=== PATIENT | male | born 1930 | race Caucasian/White ===

== ENCOUNTER 2017-03-01 15:20 | Emergency (ER) | payer MEDICARE ==
[2017-03-01 15:25] VITALS: PULSE 67
[2017-03-01 16:12] LABS: BASO % 0.9 % (0.0-2.0); EOS # 0.2 K/uL (0.0-0.7); EOS % 3.6 % (0.0-4.0); HEMOGLOBIN 14.1 g/dL (12.0-18.0); LYMPH # 1.2 K/uL (1.0-4.3); LYMPH % 22.6 % (20.0-40.0); MEAN CELL VOLUME 93.9 fL (80.0-94.0); MEAN CORPUSCULAR HEMOGLOBIN 30.9 pg (27.0-31.0); MEAN CORPUSCULAR HGB CONC 32.9 g/dL (33.0-37.0); MEAN PLATELET VOLUME 8.2 fL (7.2-11.7); MONO # 0.5 K/uL (0.0-0.8); MONO % 9.6 % (0.0-10.0); NEUT # 3.3 K/uL (1.8-7.0); NEUT % 63.3 % (50.0-75.0); NRBC % 0.1 % (0.0-2.0); RBC 4.55 Mil/uL (4.40-5.90); RED CELL DISTRIBUTION WIDTH 14.7 % (11.5-14.5); WHITE BLOOD COUNT 5.1 K/uL (4.8-10.8)
[2017-03-01 16:21] LABS: INR 1.1
[2017-03-01 16:29] LABS: ALBUMIN 3.5 g/dL (3.5-5.0)
[2017-03-01 16:32] LABS: ALB/GLOB RATIO 1.3 (1.0-2.1); ALT/SGPT 24 U/L (21-72); AST/SGOT 17 U/L (17-59); BLOOD UREA NITROGEN 17 mg/dL (9-20); CALCIUM 8.9 mg/dl (8.6-10.4); GFR AFRICAN-AMERICAN > 60; GFR NON-AFRICAN AMERICAN > 60
[2017-03-01 16:41] LABS: B-TYPE NATRIURETIC PEPTIDE 1650 pg/mL (0-900)
--- NOTE | 2017-03-01 17:08 | C.PDOC ---
History Of Present Illness 86 y/o male, with PMHx of Atrial Fibrillation and HTN, presents to the ED for evaluation of abdominal bloating. Patient was seen by his PMD yesterday for a routine visit, when his PMD noted patient had some bloating and advised to report to the ED. Patient reports he experiences dyspnea on exertion with walking up the stairs, but notes this is nothing new. Patient also reports chronic pain and associated to bilateral knees. Patient denies fever, chills, chest pain, shortness of breath at rest, orthopnea, nausea, vomiting, abdominal pain. Time Seen by Provider: 03/01/17 15:32 Chief Complaint (Nursing): Shortness Of Breath History Per: Patient History/Exam Limitations: no limitations Onset/Duration Of Symptoms: Hrs Current Symptoms Are (Timing): Still Present Quality: denies: "Pain" Current Respiratory Medications: See Home Med List Associated Symptoms: denies: Fever, Chills, Chest Pain Additional History Per: Patient Past Medical History Reviewed: Historical Data, Nursing Documentation, Vital Signs Vital Signs: Last Vital Signs Temp 98.6 F 03/01/17 18:08 Pulse 67 03/01/17 18:08 Resp 15 03/01/17 18:08 BP 152/89 H 03/01/17 18:08 Pulse Ox 98 03/01/17 18:28 - Medical History PMH: HTN Surgical History: No Surg Hx Family History: States: Unknown Family Hx - Social History Hx Tobacco Use: No Hx Alcohol Use: No Hx Substance Use: No - Immunization History Hx Tetanus Toxoid Vaccination: No Hx Influenza Vaccination: Yes Hx Pneumococcal Vaccination: Yes Review Of Systems Constitutional: Negative for: Fever, Chills Cardiovascular: Negative for: Chest Pain Respiratory: Positive for: SOB with Excertion. Negative for: Shortness of Breath Gastrointestinal: Positive for: Other (+bloating ). Negative for: Nausea, Vomiting, Abdominal Pain Musculoskeletal: Positive for: Other (+b/l knee pain with associated with swelling ) Physical Exam - Physical Exam Appears: Non-toxic, No Acute Distress, Other (+afebrile ) Skin: Normal Color, Warm, Dry Head: Atraumatic Eye(s): bilateral: Normal Inspection Oral Mucosa: Moist Neck: Supple Chest: Symmetrical, No Deformity, No Tenderness Cardiovascular: Rhythm Regular, No Murmur, Other (+irregular rate ) Respiratory: Rales (+crackles bilaterally ) Gastrointestinal/Abdominal: Soft, No Tenderness, No Guarding, No Rebound, No Other (bloating ) Extremity: Normal ROM, Capillary Refill (less than 2 seconds ) Neurological/Psych: Normal Speech, Normal Cognition Gait: Steady ED Course And Treatment - Laboratory Results Result Diagrams: 03/01/17 16:09 03/01/17 16:09 ECG: Interpreted By Me, Viewed By Me ECG Rhythm: Atrial Fibrillation Rate From EC O2 Sat by Pulse Oximetry: 98 (on RA) Pulse Ox Interpretation: Normal - Other Rad CXR X-Ray: Interpreted by Me, Viewed By Me, Read By Radiologist Interpretation: Accession No. : [id number]. Patient Name / ID : HILARY SCHAFFER / [id number]. Exam Date : 03/01/2017 16:00:34 ( Approved ). Study Comment : Sex / Age : M / [id number]. Creator : Laurence Nassar. Dictator : Laurence Nassar. Tank Operator : Boat Ride Operator : Laurence Nassar. Approver2 : Report Date : 03/01/2017 17:20:43. My Comment : . PROCEDURE: CHEST RADIOGRAPH, 1 VIEW. HISTORY: chest pain. COMPARISON: None available. FINDINGS: LUNGS: Mild pulmonary vascular congestion. PLEURA: Suspicious for small right pleural effusion. CARDIOVASCULAR: Cardiomegaly is noted. OSSEOUS STRUCTURES: No significant abnormalities. VISUALIZED UPPER ABDOMEN: Normal. OTHER FINDINGS: None. IMPRESSION: Findings suspicious for CHF. Medical Decision Making Medical Decision Making: Impression: 86 y/o male with bloating Plan: * EKG * CXR * labs * Lasix IV * reassess and disposition Progress: labs, EKG, CXR ordered and reviewed. Patient received Lasix IV. CXR showed evidence of pulmonary congestion. labs results show troponin levels within normal limits, slightly elevated BNP. Disposition Counseled Patient/Family Regarding: Studies Performed, Diagnosis, Need For Followup, Rx Given - Disposition Referrals: Walker Lu MD [Staff Provider] - Disposition: HOME/ ROUTINE Disposition Time: 17:54 Condition: GUARDED Additional Instructions: Please follow up with your doctor or the recommended mattress renovator. Return to the Emergency Department with any further concerns. Instructions: Pulmonary Edema (DC) Forms: Gen Discharge Inst Moldovan - POA Present On Arrival: None - Clinical Impression Clinical Impression: Chronic congestive heart failure - Scribe Statement The provider has reviewed the documentation as recorded by the Scribe (Trish Day) Provider Attestation: All medical record entries made by the Scribe were at my direction and personally dictated by me. I have reviewed the chart and agree that the record accurately reflects my personal performance of the history, physical exam, medical decision making, and the department course for this patient. I have also personally directed, reviewed, and agree with the discharge instructions and disposition.
--- NOTE | 2017-03-01 17:22 | RAD ---
PROCEDURE: CHEST RADIOGRAPH, 1 VIEW HISTORY: chest pain COMPARISON: None available. FINDINGS: LUNGS: Mild pulmonary vascular congestion. PLEURA: Suspicious for small right pleural effusion CARDIOVASCULAR: Cardiomegaly is noted. OSSEOUS STRUCTURES: No significant abnormalities. VISUALIZED UPPER ABDOMEN: Normal. OTHER FINDINGS: None. IMPRESSION: Findings suspicious for CHF.
[2017-03-01 18:14] VITALS: BP 152/89; RESP 15; TEMP 98.6
[2017-03-01 18:20] VITALS: O2SAT 98
--- NOTE | 2017-03-07 13:59 | CARD ---
APPROVED REPORT EKG Measurement Heart [id number] <Conclusion> Atrial fibrillation Abnormal ECG
== END 2017-03-01 18:14 | disposition home or self-care (01) ==
LOC: C.ER 15:20
DX: I50.9 Heart failure, unspecified (principal)
CPT/HCPCS: 71010; 80053; 83880; 84484; 85025; 85610; 85730; 96374; 99284; J1940

== ENCOUNTER 2017-05-11 16:44 | Observation (INO) | payer MEDICARE ==
--- NOTE | 2017-05-11 17:38 | C.PDOC ---
History Of Present Illness 86-year-old male, presents to the emergency department with complaints of worsening shortness of breath and dyspnea on exertion that has been worsening for the past two months. Patients secondary complaint is pain to bilateral knees , worsening for the past two months. Denies trauma, chest pain, fevers or cough. Time Seen by Provider: 05/11/17 17:06 Chief Complaint (Nursing): Shortness Of Breath History Per: Patient History/Exam Limitations: no limitations Onset/Duration Of Symptoms: Days Current Symptoms Are (Timing): Still Present Past Medical History Reviewed: Historical Data, Nursing Documentation, Vital Signs Vital Signs: Last Vital Signs Temp 97.9 F 05/11/17 16:59 Pulse 82 05/11/17 16:59 Resp 30 H 05/11/17 17:30 BP 136/74 05/11/17 16:59 Pulse Ox 97 05/11/17 18:43 - Medical History PMH: HTN Family History: States: No Known Family Hx - Social History Hx Tobacco Use: No Hx Alcohol Use: No Hx Substance Use: No - Immunization History Hx Tetanus Toxoid Vaccination: No Hx Influenza Vaccination: Yes Hx Pneumococcal Vaccination: Yes Review Of Systems Except As Marked, All Systems Reviewed And Found Negative. Constitutional: Negative for: Fever Cardiovascular: Negative for: Chest Pain, Palpitations Respiratory: Positive for: Shortness of Breath, SOB with Excertion Musculoskeletal: Positive for: Other (B/L knee pain) Neurological: Negative for: Weakness, Numbness, Headache, Dizziness Physical Exam - Physical Exam Appears: Non-toxic, No Acute Distress Skin: Warm, Dry, No Rash Head: Atraumatic, Normacephalic Eye(s): bilateral: Normal Inspection Nose: Normal Oral Mucosa: Moist Lips: Normal Appearing Neck: Normal ROM Chest: Symmetrical Cardiovascular: Rhythm Regular, No Murmur Respiratory: No Accessory Muscle Use, Other (Tachypneic) Extremity: Normal ROM Neurological/Psych: Oriented x3, Normal Speech ED Course And Treatment - Laboratory Results Result Diagrams: 05/11/17 17:49 05/11/17 17:49 ECG: Interpreted By Me ECG Rhythm: Atrial Fibrillation ECG Interpretation: Normal Rate From EC O2 Sat by Pulse Oximetry: 97 Pulse Ox Interpretation: Normal - Radiology CXR: Interpreted by Me CXR Interpretation: Yes: No Acute Disease Progress - Re-Evaluation Re-evaluation Note: 05/11/17 18:46 D/W DR Felton EILAS 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 I have reviewed the chart and agree that the record accurately reflects my personal performance of the history, physical exam, medical decision making, and the department course for this patient. I have also personally directed, reviewed, and agree with the discharge instructions and disposition. Decision To Admit - Pt Status Changed To: Hospital Disposition Of: Observation - . Bed Request Type: Telemetry Admitting Physician: Terrence Wright Patient Diagnosis: CHF exacerbation, Chronic knee pain
[2017-05-11 17:57] LABS: BASO % 0.4 % (0.0-2.0); EOS % 0.4 % (0.0-4.0); HEMATOCRIT 45.5 % (35.0-51.0); LYMPH # 1.1 K/uL (1.0-4.3); LYMPH % 10.8 % (20.0-40.0); MEAN CELL VOLUME 92.1 fL (80.0-94.0); MEAN CORPUSCULAR HEMOGLOBIN 30.7 pg (27.0-31.0); MEAN CORPUSCULAR HGB CONC 33.4 g/dL (33.0-37.0); MEAN PLATELET VOLUME 8.4 fL (7.2-11.7); MONO # 1.1 K/uL (0.0-0.8); MONO % 10.4 % (0.0-10.0); RED CELL DISTRIBUTION WIDTH 14.1 % (11.5-14.5); WHITE BLOOD COUNT 10.7 K/uL (4.8-10.8)
[2017-05-11 18:01] LABS: CHLORIDE 100 mmol/L (98-107); POTASSIUM 3.3 mmol/L (3.6-5.2); SODIUM 142 mmol/L (132-148)
[2017-05-11 18:03] LABS: ALB/GLOB RATIO 1.2 (1.0-2.1); AST/SGOT 32 U/L (17-59); BILIRUBIN,TOTAL 1.5 mg/dL (0.2-1.3); CARBON DIOXIDE 28 mmol/L (22-30); GFR AFRICAN-AMERICAN > 60; INR 1.3; TOTAL PROTEIN 6.9 g/dL (6.3-8.3)
[2017-05-11 18:04] LABS: ALKALINE PHOSPHATASE 64 U/L (38-126); ALT/SGPT 43 U/L (21-72); BLOOD UREA NITROGEN 14 mg/dL (9-20); CALCIUM 9.2 mg/dl (8.6-10.4); GLUCOSE,RANDOM 100 mg/dL (75-110)
[2017-05-11 18:07] LABS: VENOUS BLOOD GAS BASE EXCESS 1.5 mmol/L (0.0-2.0); VENOUS BLOOD GAS PCO2 54 mmHg (40-60); VENOUS BLOOD PH 7.33 (7.32-7.43)
--- NOTE | 2017-05-12 02:28 | CP.PCM.HP ---
History of Present Illness - History of Present Illness History of Present Illness: 86 yo M with PMHx of A-Fib, HTN, chronic right knee pain, presented to the ED for worsening shortness of breath that began 3 months ago. The patient is a poor historian and AAOx2 (not oriented to time) thus some history was collected from chart review. During encounter patient was more focused on his chronic right knee pain. He denied breathing difficulty and was unable to answer questions related to his dyspnea. He was sitting up in bed without breathing assistance and saturating at 98%. He admitted to non-productive cough. He denied fever, chills, chest pain, palpitations, diarrhea, vomiting. PMD: Pt unable to recall PMHx: A-Fib, HTN, chronic right knee pain PSHx: denies Allergies: NKA Home Medications: aspirin 81mg po daily, furosemide 20mg po daily, lisinopril 40mg po daily, metoprolol succinate 50mg po daily FamHx: denies SocialHx: denies Present on Admission - Present on Admission Any Indicators Present on Admission: No History of DVT/PE: No History of Uncontrolled Diabetes: No Urinary Catheter: No Decubitus Ulcer Present: No Review of Systems - Review of Systems Systems not reviewed;Unavailable: Other Review of Systems: Patient with poor recall; very poor historian; - Constitutional Constitutional: absent: Chills, Fever - Cardiovascular Cardiovascular: absent: Chest Pain - Respiratory Respiratory: Cough, Dyspnea - Gastrointestinal Gastrointestinal: absent: Abdominal Pain - Genitourinary Genitourinary: absent: Dysuria - Musculoskeletal Musculoskeletal: Arthralgias - Neurological Neurological: absent: Dizziness - Hematologic/Lymphatic Hematologic: absent: Easy Bleeding Past Patient History - Infectious Disease Hx of Infectious Diseases: None - Past Social History Smoking Status: Never Smoked - CARDIAC Hx Hypertension: Yes - MUSCULOSKELETAL/RHEUMATOLOGICAL Hx Falls: No - PSYCHIATRIC Hx Substance Use: No - ANESTHESIA Hx Anesthesia: No Hx Anesthesia Reactions: No Hx Malignant Hyperthermia: No Has any member of the family had a problem w/ anesthesia?: No Meds Allergies/Adverse Reactions: Allergies Allergy/AdvReac Type Severity Reaction Status Date / Time No Known Allergies Allergy Verified 05/11/17 17:01 Physical Exam - Constitutional Appears: Well, Non-toxic, No Acute Distress - Head Exam Head Exam: ATRAUMATIC, NORMAL INSPECTION - Eye Exam Eye Exam: EOMI Pupil Exam: PERRL - ENT Exam ENT Exam: Mucous Membranes Moist - Neck Exam Neck exam: Positive for: Normal Inspection - Respiratory Exam Respiratory Exam: Clear to Auscultation Bilateral, NORMAL BREATHING PATTERN. absent: Rales, Rhonchi, Wheezes - Cardiovascular Exam Cardiovascular Exam: Irregular Rhythm. absent: Bradycardia, Tachycardia, Systolic Murmur - GI/Abdominal Exam GI & Abdominal Exam: Normal Bowel Sounds, Soft. absent: Distended, Tenderness - Rectal Exam Rectal Exam: Deferred - Extremities Exam Extremities exam: Positive for: normal inspection. Negative for: joint swelling , pedal edema - Neurological Exam Additional comments: Alert; AAOx2 (not oriented to time/date) - Psychiatric Exam Psychiatric exam: Normal Affect, Normal Mood - Skin Skin Exam: Dry, Intact, Normal Color, Warm Results - Vital Signs Recent Vital Signs: Last Vital Signs Temp 98 F 05/12/17 00:28 Pulse 75 05/12/17 02:11 Resp 24 05/12/17 00:28 BP 134/76 05/12/17 00:28 Pulse Ox 96 05/12/17 01:47 - Labs Result Diagrams: 05/11/17 17:49 05/11/17 17:49 Labs: Laboratory Results - last 24 hr 05/11/17 05/11/17 05/11/17 17:49 17:49 17:49 WBC 10.7 D RBC 4.94 Hgb 15.2 Hct 45.5 MCV 92.1 MCH 30.7 MCHC 33.4 RDW 14.1 Plt Count 185 MPV 8.4 Neut % (Auto) 78.0 H Lymph % (Auto) 10.8 L Harvey % (Auto) 10.4 H Eos % (Auto) 0.4 Baso % (Auto) 0.4 Neut # 8.3 H Lymph # 1.1 Harvey # 1.1 H Eos # 0.0 Baso # 0.0 PT 15.0 H INR 1.3 APTT 35 H D-Dimer, Quantitative 663 H pO2 VBG pH VBG pCO2 VBG HCO3 VBG Total CO2 VBG O2 Sat (Calc) VBG Base Excess VBG Potassium Glucose Lactate Sodium 142 Potassium 3.3 L Chloride 100 Carbon Dioxide 28 Anion Gap 18 BUN 14 Creatinine 0.9 Est GFR ( Amer) > 60 Est GFR (Non-Af Amer) > 60 Random Glucose 100 Calcium 9.2 Total Bilirubin 1.5 H AST 32 ALT 43 Alkaline Phosphatase 64 Troponin I < 0.0120 NT-Pro-B Natriuret Pep 2420 H Total Protein 6.9 Albumin 3.7 Globulin 3.2 Albumin/Globulin Ratio 1.2 Venous Blood Potassium 05/11/17 18:00 WBC RBC Hgb Hct MCV MCH MCHC RDW Plt Count MPV Neut % (Auto) Lymph % (Auto) Harvey % (Auto) Eos % (Auto) Baso % (Auto) Neut # Lymph # Harvey # Eos # Baso # PT INR APTT D-Dimer, Quantitative pO2 14 L VBG pH 7.33 VBG pCO2 54 VBG HCO3 23.8 VBG Total CO2 30.2 H VBG O2 Sat (Calc) 26.8 L VBG Base Excess 1.5 VBG Potassium 3.1 L Glucose 128 H Lactate 1.9 Sodium 140.0 Potassium Chloride 108.0 H Carbon Dioxide Anion Gap BUN Creatinine Est GFR ( Amer) Est GFR (Non-Af Amer) Random Glucose Calcium Total Bilirubin AST ALT Alkaline Phosphatase Troponin I NT-Pro-B Natriuret Pep Total Protein Albumin Globulin Albumin/Globulin Ratio Venous Blood Potassium 3.1 L Assessment & Plan (1) CHF exacerbation Assessment and Plan: subjective SOB as patient is poor historian; maintaining spO2 on room air; need to verify hx w/ family/PMD Echo ordered, F/U CTA of chest ordered, F/U furosemide 20mg po daily continue home med aspirin 81mg po daily Status: Acute (2) Hypertension Assessment and Plan: Home meds verified per ED nurse; presumed hx of HTN continue home med lisinopril 10mg po daily continue home med metoprolol succinate 50mg po daily Status: Acute (3) Atrial fibrillation Assessment and Plan: Hx of A-Fib, not on anticoagulation, will need to check with PMD Status: Acute (4) Chronic knee pain Assessment and Plan: Patient able to ambulate without difficulty, no swelling noted Status: Acute (5) Prophylactic measure Assessment and Plan: DVT: enoxaparin 40mg sc daily GI: pantoprazole 40mg po daily Diet: heart healthy diet Status: Acute
--- NOTE | 2017-05-12 03:45 | CP.PCM.PN ---
Subjective - Date & Time of Evaluation Date of Evaluation: 05/11/17 Time of Evaluation: 21:00 - Subjective Subjective: Assessment * Subjective SOB as per the history, patient maintaining spo2 on RA, maintained RR at rest, elevated ddimer, poor history from patient probably has dementia * H/o afib not on anticoagulation will check with patient's PMD * H/o htn Plan * Echo * CTA chest PE study * Continue home meds * GI prophylaxis * DVT prophylaxis with lovenox subq * Check with PMD and family * See orders for detail. Objective - Vital Signs/Intake and Output Vital Signs (last 24 hours): Temp Pulse Resp BP Pulse Ox 98 F 75 24 134/76 96 05/12/17 00:28 05/12/17 02:11 05/12/17 00:28 05/12/17 00:28 05/12/17 01:47 Intake and Output: 05/11/17 05/12/17 18:59 06:59 Output Total 300 Balance -300 - Medications Medications: Current Medications Aspirin (Aspirin Chewable) 81 mg PO DAILY JOESPH Enoxaparin Sodium (Lovenox) 40 mg SC DAILY JOESPH Furosemide (Lasix) 20 mg PO DAILY JOESPH Lisinopril (Zestril) 10 mg PO DAILY JOESPH Metoprolol Succinate (Toprol Xl) 50 mg PO DAILY JOESPH Pantoprazole Sodium (Protonix Ec Tab) 40 mg PO DAILY JOESPH - Labs Labs: 05/11/17 17:49 05/11/17 17:49 PT 15.0 SECONDS (9.7-12.2) H 05/11/17 17:49 INR 1.3 05/11/17 17:49 APTT 35 SECONDS (21-34) H 05/11/17 17:49
[2017-05-12] MEDS ORDERED: Iodixanol 320 MG/ML 100 ML BOTTLE IV ONE (06:21)
--- NOTE | 2017-05-12 07:31 | CT ---
EXAM: CT Angiography Chest With Intravenous Contrast EXAM DATE/TIME: 05/12/2017 3:40 AM CLINICAL HISTORY: 86 years old, male; Signs and symptoms; Shortness of breath; Additional info: Positive d dimer, C/O some SOB TECHNIQUE: Axial computed tomographic angiography images of the chest with intravenous contrast using pulmonary embolism protocol. All CT scans at this facility use one or more dose reduction techniques, viz.: automated exposure control; ma/kV adjustment per patient size (including targeted exams where dose is matched to indication; i.e. head); or iterative reconstruction technique. MIP reconstructed images were created and reviewed. Coronal and sagittal reformatted images were created and reviewed. CONTRAST: 100 mL of [id number] administered intravenously. COMPARISON: No relevant prior studies available. FINDINGS: Pulmonary arteries: No evidence of pulmonary embolism. Aorta: Ascending thoracic aorta measures 4.3 cm. Descending aorta measures 3.6 cm. Lungs: Unremarkable. No mass. No consolidation. Pleural space: Unremarkable. No significant effusion. No pneumothorax. Heart: Cardiomegaly. Prominent pulmonary veins relative to the accompanying bronchi. No consolidation. No mass. No significant pericardial effusion. No evidence of RV dysfunction. Bones/joints: No acute fracture. Soft tissues: Unremarkable. Lymph nodes: No enlarged lymph nodes. Liver: Low attenuation hepatic lesions, largest 1.8 cm, the others 5 mm. Kidneys and ureters: Similar low attenuation right renal lesions 1.5 cm or less. 8mm high attenuation lesion. IMPRESSION: 1. No evidence of pulmonary embolism. 2. 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 3. Cardiomegaly and mild pulmonary venous congestion. 4. Hepatic and renal cysts. Probable complex hemorrhagic right renal cyst.
--- NOTE | 2017-05-12 08:56 | RAD ---
PROCEDURE: CHEST RADIOGRAPH, 1 VIEW HISTORY: Shortness of breath COMPARISON: None available. FINDINGS: LUNGS: Moderate venous congestion. Right hilar prominence. Patchy bibasilar airspace opacities. Mammilated and/or elevated left hemidiaphragm. Diffuse increased interstitial lung markings. PLEURA: As above. CARDIOVASCULAR: Cardiomegaly. Tortuous ectatic aorta. OSSEOUS STRUCTURES: No significant abnormalities. VISUALIZED UPPER ABDOMEN: Normal. OTHER FINDINGS: None. IMPRESSION: Moderate venous congestion. Right hilar prominence. Patchy bibasilar airspace opacities. Mammilated and/or elevated left hemidiaphragm. Diffuse increased interstitial lung markings.
[2017-05-12 09:10] VITALS: RESP 20
[2017-05-12] MEDS: Pantoprazole 40 mg EC Tab PO SCH (11:17)
[2017-05-12] MEDS: Enoxaparin 40 mg Syringe SC SCH (11:18)
[2017-05-12] MEDS: Metoprolol Succinate 50 mg XL Tab PO SCH (11:18)
--- NOTE | 2017-05-12 15:57 | CP.PCM.PN ---
<Reza Thakur - Last Filed: 05/12/17 17:39> Subjective - Date & Time of Evaluation Date of Evaluation: 05/12/17 Time of Evaluation: 08:00 - Subjective Subjective: PGY1 Medicine Note for Dr. Luna Patient was seen and examined at bedside this morning. Patient denies any SOB or chest pain at this time. He is a poor historian. Denies any complaints at this time. Objective - Vital Signs/Intake and Output Vital Signs (last 24 hours): Temp Pulse Resp BP Pulse Ox 98.9 F 62 20 118/77 94 L 05/12/17 08:00 05/12/17 12:31 05/12/17 08:00 05/12/17 11:20 05/12/17 12:31 Intake and Output: 05/12/17 05/12/17 06:59 18:59 Output Total 300 Balance -300 - Medications Medications: Current Medications Aspirin (Aspirin Chewable) 81 mg PO DAILY [facility] Last Admin: 05/12/17 11:17 Dose: 81 mg Enoxaparin Sodium (Lovenox) 40 mg SC DAILY [facility] Last Admin: 05/12/17 11:18 Dose: 40 mg Furosemide (Lasix) 20 mg PO DAILY [facility] Last Admin: 05/12/17 11:18 Dose: 20 mg Lisinopril (Zestril) 10 mg PO DAILY [facility] Last Admin: 05/12/17 11:17 Dose: 10 mg Metoprolol Succinate (Toprol Xl) 50 mg PO DAILY [facility] Last Admin: 05/12/17 11:18 Dose: 50 mg Pantoprazole Sodium (Protonix Ec Tab) 40 mg PO DAILY [facility] Last Admin: 05/12/17 11:17 Dose: 40 mg - Labs Labs: 05/11/17 17:49 05/11/17 17:49 PT 15.0 SECONDS (9.7-12.2) H 05/11/17 17:49 INR 1.3 05/11/17 17:49 APTT 35 SECONDS (21-34) H 05/11/17 17:49 - Constitutional Appears: Non-toxic, No Acute Distress - Head Exam Head Exam: ATRAUMATIC, NORMOCEPHALIC - Eye Exam Eye Exam: EOMI, Normal appearance - ENT Exam ENT Exam: Mucous Membranes Moist - Neck Exam Neck Exam: Full ROM. absent: Meningismus, Tenderness - Respiratory Exam Respiratory Exam: NORMAL BREATHING PATTERN. absent: Accessory Muscle Use, Rhonchi, Wheezes, Respiratory Distress - Cardiovascular Exam Cardiovascular Exam: Irregular Rhythm, +S1, +S2 - GI/Abdominal Exam GI & Abdominal Exam: Soft, Normal Bowel Sounds. absent: Distended, Guarding, Rigid, Tenderness - Extremities Exam Extremities Exam: absent: Calf Tenderness, Tenderness Additional comments: trace pitting edema LE b/l - Neurological Exam Neurological Exam: Alert, Awake. absent: Motor Sensory Deficit, Oriented x3 ( not oriented to time/date) - Psychiatric Exam Psychiatric exam: Normal Affect, Normal Mood - Skin Skin Exam: Dry, Intact, Warm Assessment and Plan - Assessment and Plan (Free Text) Assessment: CHF exacerbation Assessment and Plan: subjective SOB as patient is poor historian; maintaining spO2 on room air; need to verify hx w/ family/PMD Echo completed, awaiting report CTA of chest ordered - no evidence of PE seen furosemide 20mg po daily aspirin 81mg po daily (2) Hypertension Assessment and Plan: Home meds verified per ED nurse; presumed hx of HTN continue home med lisinopril 10mg po daily continue home med metoprolol succinate 50mg po daily (3) Atrial fibrillation Assessment and Plan: Hx of A-Fib, not on anticoagulation, will need to check with PMD Called and spoke to Daughter (Katie), she did not know patient's previous PMD (believes Dr. Lu who practiced in [place], but does not know where). States she does not believe he has a current PMD since he moved to [place] a couple years ago. (4) Chronic knee pain Assessment and Plan: Patient able to ambulate without difficulty, no swelling noted (5) Prophylactic measure Assessment and Plan: DVT: enoxaparin 40mg sc daily GI: pantoprazole 40mg po daily Diet: heart healthy diet <CherylJorge M - Last Filed: 05/13/17 15:44> Objective - Vital Signs/Intake and Output Vital Signs (last 24 hours): Temp Pulse Resp BP Pulse Ox 98.3 F 99 H 20 142/81 98 05/13/17 09:53 05/13/17 09:53 05/13/17 09:53 05/13/17 09:53 05/13/17 09:53 Intake and Output: 05/13/17 05/13/17 06:59 18:59 Intake Total 480 Balance 480 - Medications Medications: Current Medications Aspirin (Aspirin Chewable) 81 mg PO DAILY [facility] Last Admin: 05/13/17 09:55 Dose: 81 mg Enoxaparin Sodium (Lovenox) 40 mg SC DAILY [facility] Last Admin: 05/13/17 09:55 Dose: 40 mg Furosemide (Lasix) 20 mg PO DAILY [facility] Last Admin: 05/13/17 10:00 Dose: Not Given Lisinopril (Zestril) 10 mg PO DAILY [facility] Last Admin: 05/13/17 09:54 Dose: 10 mg Metoprolol Succinate (Toprol Xl) 50 mg PO DAILY [facility] Last Admin: 05/13/17 09:54 Dose: 50 mg Pantoprazole Sodium (Protonix Ec Tab) 40 mg PO DAILY [facility] Last Admin: 05/13/17 09:55 Dose: 40 mg Potassium Chloride (K-Dur 20 Meq Er Tab) 40 meq PO DAILY [facility] Last Admin: 05/13/17 09:55 Dose: 40 meq - Labs Labs: 05/13/17 11:27 05/13/17 09:37 PT 15.0 SECONDS (9.7-12.2) H 05/11/17 17:49 INR 1.3 05/11/17 17:49 APTT 35 SECONDS (21-34) H 05/11/17 17:49 Attending/Attestation - Attestation I have personally seen and examined this patient.: Yes I have fully participated in the care of the patient.: Yes I have reviewed all pertinent clinical information, including history, physical exam and plan: Yes Notes (Text): 05/13/17 15:44 Patient was seen and examined at bedside with the resident Patient appears comfortable Breathing is improved Continue current medical management Discussed the plan of care with the resident I agree with the assessment and plan documented.
[2017-05-13] MEDS: Metoprolol Succinate 50 mg XL Tab PO SCH (09:54)
[2017-05-13] MEDS: Enoxaparin 40 mg Syringe SC SCH (09:55)
[2017-05-13] MEDS: Pantoprazole 40 mg EC Tab PO SCH (09:55)
[2017-05-13] MEDS ORDERED: Potassium Chloride 20 mEq ER Tab PO SCH (10:00)
[2017-05-13 11:33] LABS: BASO % 0.3 % (0.0-2.0); EOS # 0.2 K/uL (0.0-0.7); EOS % 2.4 % (0.0-4.0); HEMATOCRIT 42.3 % (35.0-51.0); LYMPH # 0.8 K/uL (1.0-4.3); LYMPH % 12.6 % (20.0-40.0); MEAN CELL VOLUME 92.2 fL (80.0-94.0); MEAN CORPUSCULAR HEMOGLOBIN 30.4 pg (27.0-31.0); MEAN PLATELET VOLUME 8.6 fL (7.2-11.7); MONO # 0.4 K/uL (0.0-0.8); MONO % 6.4 % (0.0-10.0); RED CELL DISTRIBUTION WIDTH 13.9 % (11.5-14.5); WHITE BLOOD COUNT 6.2 K/uL (4.8-10.8)
[2017-05-13 11:56] LABS: ALKALINE PHOSPHATASE 65 U/L (38-126); ALT/SGPT 47 U/L (21-72); AST/SGOT 30 U/L (17-59); BILIRUBIN,TOTAL 1.1 mg/dL (0.2-1.3); BLOOD UREA NITROGEN 15 mg/dL (9-20); CALCIUM 8.7 mg/dl (8.6-10.4); CARBON DIOXIDE 25 mmol/L (22-30); CHLORIDE 101 mmol/L (98-107); GFR AFRICAN-AMERICAN > 60; GLUCOSE,RANDOM 159 mg/dL (75-110); SODIUM 137 mmol/L (132-148)
[2017-05-13 12:20] LABS: ALB/GLOB RATIO 1.1 (1.0-2.1)
[2017-05-13] MEDS ORDERED: Potassium Chloride 20 mEq ER Tab PO STA (14:58)
[2017-05-13 16:15] VITALS: BP 125/82; PULSE 75; TEMP 98.1; O2SAT 96
--- NOTE | 2017-05-13 18:40 | CP.PCM.DIS ---
Provider - Provider Date of Admission: 05/11/17 18:47 Attending physician: Jorge Luna MD Time Spent in preparation of Discharge (in minutes): 30 Hospital Course - Lab Results Lab Results: Most Recent Lab Values WBC 6.2 K/uL (4.8-10.8) 05/13/17 11:27 RBC 4.58 Mil/uL (4.40-5.90) 05/13/17 11:27 Hgb 13.9 g/dL (12.0-18.0) 05/13/17 11:27 Hct 42.3 % (35.0-51.0) 05/13/17 11:27 MCV 92.2 fL (80.0-94.0) 05/13/17 11: MCH 30.4 pg (27.0-31.0) 05/13/17 11: MCHC 33.0 g/dL (33.0-37.0) 05/13/17 11: RDW 13.9 % (11.5-14.5) 05/13/17 11:27 Plt Count 219 K/uL (130-400) 05/13/17 11:27 MPV 8.6 fL (7.2-11.7) 05/13/17 11:27 Neut % (Auto) 78.3 % (50.0-75.0) H 05/13/17 11:27 Lymph % (Auto) 12.6 % (20.0-40.0) L 05/13/17 11:27 York % (Auto) 6.4 % (0.0-10.0) 05/13/17 11:27 Eos % (Auto) 2.4 % (0.0-4.0) 05/13/17 11:27 Baso % (Auto) 0.3 % (0.0-2.0) 05/13/17 11:27 Neut # 4.8 K/uL (1.8-7.0) 05/13/17 11:27 Lymph # 0.8 K/uL (1.0-4.3) L 05/13/17 11:27 York # 0.4 K/uL (0.0-0.8) 05/13/17 11:27 Eos # 0.2 K/uL (0.0-0.7) 05/13/17 11:27 Baso # 0.0 K/uL (0.0-0.2) 05/13/17 11:27 PT 15.0 SECONDS (9.7-12.2) H 05/11/17 17:49 INR 1.3 05/11/17 17:49 APTT 35 SECONDS (21-34) H 05/11/17 17:49 D-Dimer, Quantitative 663 ng/mlDDU (0-243) H 05/11/17 17:49 pO2 14 mm/Hg (30-55) L 05/11/17 18:00 VBG pH 7.33 (7.32-7.43) 05/11/17 18:00 VBG pCO2 54 mmHg (40-60) 05/11/17 18:00 VBG HCO3 23.8 mmol/L 05/11/17 18:00 VBG Total CO2 30.2 mmol/L (22-28) H 05/11/17 18:00 VBG O2 Sat (Calc) 26.8 % (40-65) L 05/11/17 18:00 VBG Base Excess 1.5 mmol/L (0.0-2.0) 05/11/17 18:00 VBG Potassium 3.1 mmol/L (3.6-5.2) L 05/11/17 18:00 Sodium 140.0 mmol/l (132-148) 05/11/17 18:00 Chloride 108.0 mmol/L (98-107) H 05/11/17 18:00 Glucose 128 mg/dl (75-110) H 05/11/17 18:00 Lactate 1.9 mmol/L (0.7-2.1) 05/11/17 18:00 Sodium 137 mmol/L (132-148) 05/13/17 09:37 Potassium 3.0 mmol/L (3.6-5.2) L 05/13/17 09:37 Chloride 101 mmol/L (98-107) 05/13/17 09:37 Carbon Dioxide 25 mmol/L (22-30) 05/13/17 09:37 Anion Gap 14 (10-20) 05/13/17 09:37 BUN 15 mg/dL (9-20) 05/13/17 09:37 Creatinine 0.9 MG/DL (0.8-1.5) 05/13/17 09:37 Est GFR ( Amer) > 60 05/13/17 09:37 Est GFR (Non-Af Amer) > 60 05/13/17 09:37 Random Glucose 159 mg/dL (75-110) H 05/13/17 09:37 Calcium 8.7 mg/dl (8.6-10.4) 05/13/17 09:37 Total Bilirubin 1.1 mg/dL (0.2-1.3) 05/13/17 09:37 AST 30 U/L (17-59) 05/13/17 09:37 ALT 47 U/L (21-72) 05/13/17 09:37 Alkaline Phosphatase 65 U/L (38-126) 05/13/17 09:37 Troponin I < 0.0120 ng/mL (0.00-0.120) 05/11/17 17:49 NT-Pro-B Natriuret Pep 2420 pg/mL (0-900) H 05/11/17 17:49 Total Protein 6.0 g/dL (6.3-8.3) L 05/13/17 09:37 Albumin 3.2 g/dL (3.5-5.0) L 05/13/17 09:37 Globulin 2.8 gm/dL (2.2-3.9) 05/13/17 09:37 Albumin/Globulin Ratio 1.1 (1.0-2.1) 05/13/17 09:37 Venous Blood Potassium 3.1 mmol/L (3.6-5.2) L 05/11/17 18:00 - Hospital Course Hospital Course: As per admission documentation, 86 yo M with PMHx of A-Fib, HTN, chronic right knee pain, presented to the ED for worsening shortness of breath that began 3 months ago. The patient is a poor historian and AAOx2 (not oriented to time) thus some history was collected from chart review. During encounter patient was more focused on his chronic right knee pain. He denied breathing difficulty and was unable to answer questions related to his dyspnea. He was sitting up in bed without breathing assistance and saturating at 98%. He admitted to non-productive cough. He denied fever, chills, chest pain, palpitations, diarrhea, vomiting. Hospital course, Patient was admitted for CHF exacerbation. His course was difficulty to evaluated because the patient was a poor historian. Patient's EKG upon admission showed patient to be in afib. He was placed in the telemetry unit and remained in afib throughout the course of his stay. CTA of chest 05/11 - no evidence of PE seen. ECHO 05/11 - showed LVEF >50%. Resident spoke to Patient's daughter on the phone to discuss his care and reason for coming to the hospital. She was told that his breathing had gotten worse and they just wanted to be safe so they decided to come. Patient was stable throughout his hospital course. He was diuresis during his stay. His breathing improved and his b/l leg edema improved, even though it was mild to trace to begin with. Patient was discharged home with his . Patient and his family do not believe he was ever on anti-coagulation for his afib. Patient has a [id number] Score of 4 ( age >75, CHF hx and HTN) which indicates a 4.8% stroke risk or "moderate-high" risk - should be on anticoagulation. HAS-BLED score of 2 (age >65, HTN) moderate risk of major bleeding, anti coagulation can still be considered. It was believed that his risks of stoke out weighted his risk of bleeding, patient was started on anticoagulation therapy upon discharge. Discharge instructions Patient is be discharged home as per Dr. Luna. Patient is to follow up with his primary care physician within one week. If the patient does not have a primary care physician, he is to follow up with the neighborhood clinic at [facility] within one week. If any new or worsening symptoms occur, please return to the hospital. Discharge Prescription Eliquis 2.5mg PO BID Continue home medications as instructed by prescribing physician. Lisinopril 40mg PO daily Metoprolol Succinate 50mg PO daily Lasix 20mg PO daily Aspirin 81mg PO daily Reza Thakur PGY1 - Date & Time of H&P Date of H&P: 05/12/17 Time of H&P: 02:20 Discharge Exam - Head Exam Head Exam: ATRAUMATIC, NORMOCEPHALIC - Eye Exam Eye Exam: EOMI, Normal appearance - ENT Exam ENT Exam: Mucous Membranes Moist - Respiratory Exam Respiratory Exam: Clear to PA & Lateral, NORMAL BREATHING PATTERN, UNREMARKABLE. absent: Accessory Muscle Use, Rales, Rhonchi, Wheezes, Respiratory Distress - Cardiovascular Exam Cardiovascular Exam: Irregular Rhythm, +S1, +S2 - Extremities Exam Extremities exam: normal capillary refill, normal inspection, pedal pulses present - Neurological Exam Neurological exam: Alert (poor historian, baseline as per daughter on phone) - Psychiatric Exam Psychiatric exam: Normal Affect, Normal Mood - Skin Skin Exam: Dry, Intact, Normal Color, Warm Discharge Plan - Discharge Medications Prescriptions: Apixaban [Eliquis] 2.5 mg PO BID #60 tablet - Follow Up Plan Condition: STABLE Disposition: HOME/ ROUTINE Instructions: Apixaban (By mouth), Heart Failure (DC), Heart Failure (GEN), Atrial Fibrillation (DC), Pacemaker (DC), Pacemaker (GEN), Pulmonary Edema (DC) , Pulmonary Edema (GEN), Chronic Hypertension (DC), Ascites (DC), Ascites (GEN) Additional Instructions: Patient is be discharged home as per Dr. Luna. Patient is to follow up with his primary care physician within one week. If the patient does not have a primary care physician, he is to follow up with the neighborhood clinic at [facility] within one week. If any new or worsening symptoms occur, please return to the hospital. Discharge Prescription Eliquis 2.5mg PO BID Continue home medications as instructed by prescribing physician. Lisinopril 40mg PO daily Metoprolol Succinate 50mg PO daily Lasix 20mg PO daily Aspirin 81mg PO daily Referrals: [facility] [Outside]
--- NOTE | 2017-05-14 11:39 | CARD ---
APPROVED REPORT EXAM: Two-dimensional and M-mode echocardiogram with Doppler and color Doppler. Other Information Quality : GoodRhythm : Atrial Fibrillation INDICATION Dyspnea Congestive Heart Failure COPD RISK FACTORS Hypertension 2D DIMENSIONS IVSd1.4 (0.7-1.1cm)LVDd4.6 (3.9-5.9cm) PWd1.4 (0.7-1.1cm)LVDs2.7 (2.5-4.0cm) FS (%) 42.0 %LVEF (%)73.0 (>50%) M-Mode DIMENSIONS Left Atrium (MM)4.58 (2.5-4.0cm)Aortic Root4.13 (2.2-3.7cm) Aortic Cusp Exc.1.94 (1.5-2.0cm) Mitral Valve E/A ratio0.0 TDI E/Lateral E'0.0E/Medial E'0.0 Tricuspid Valve TR Peak [id number]/sTR Peak Gr.[id number] LEFT VENTRICLE The left ventricle is normal size. There is mild concentric left ventricular hypertrophy. The left ventricular function is normal. The left ventricular ejection fraction is within the normal range. No regional wall motion abnormalities noted. DIASTOLIC DYSFUNCTION NOTED, GRADE CANNOT BE ACCURATELY ASSESSED DUE TO AFIB. No left ventricle thrombus noted on this study. There is no ventricular septal defect visualized. There is no left ventricular aneurysm. There is no mass noted in the left ventricle. RIGHT VENTRICLE The right ventricle is normal size. There is normal right ventricular wall thickness. The right ventricular systolic function is normal. ATRIA The left atrium is mild to moderately dilated. The right atrium size is normal. The interatrial septum is intact with no evidence for an atrial septal defect. AORTIC VALVE The aortic valve is normal in structure and function. No aortic regurgitation is present. There is no aortic valvular stenosis. There is no aortic valvular vegetation. MITRAL VALVE The mitral valve is normal in structure There is no evidence of mitral valve prolapse. There is no mitral valve stenosis. Mitral regurgitation is mild. TRICUSPID VALVE The tricuspid valve is normal in structure There is mild tricuspid regurgitation. There is no tricuspid valve prolapse or vegetation. There is no tricuspid valve stenosis. PULMONIC VALVE The pulmonary valve is normal in structure. There is mild pulmonic valvular regurgitation. There is no pulmonic valvular stenosis. GREAT VESSELS The aortic root is normal in size. The ascending aorta is Mildly dilated. The pulmonary artery is normal. The IVC is normal in size and collapses >50% with inspiration. PERICARDIAL EFFUSION The pericardium appears normal. There is no pleural effusion. <Conclusion> The left ventricular ejection fraction is within the normal range. There is mild concentric left ventricular hypertrophy. DIASTOLIC DYSFUNCTION NOTED, GRADE CANNOT BE ACCURATELY ASSESSED DUE TO AFIB. Mitral regurgitation is mild. There is mild tricuspid regurgitation. The ascending aorta is Mildly dilated.
--- NOTE | 2017-05-14 13:21 | CARD ---
APPROVED REPORT EKG Measurement Heart [id number] <Conclusion> Atrial fibrillation LAD Abnormal ECG
--- NOTE | 2017-05-14 17:28 | PCM.HF ---
Heart Failure Core Measure - Heart Failure Ejection Fraction: 40 % or Greater Left Ventricular Function to be assessed after discharge: No LIVIA Inhibitor Prescribed: Yes Beta-Mira Prescribed: Metoprolol Succinate Angiotensin II Receptor Mira Prescribed: No Contraindication/Reason for not providing: on livia AnticoagulationTherapy for Atrial Fibrillation/Atrialflutter: Yes Aldosterone Antagonist Prescribed: No Contraindication/Reason for not providing: on lasix Hydralazine Nitrate Prescribed: No Contraindication/Reason for not providing: on lasix, livia, bb Implantable Cardioverter Defibrillator Therapy: No Contraindication/Reason for not providing: chronic persistant afib, no indication for ICD at this time Cardiac Resynchronization Therapy Prescribed: No Contraindication/Reason for not providing: chronic persistant afib, pt asymptomatic at this time - Follow up Will be discharged to: Home Follow Up Date (must be within 7 days from discharge): 05/20/17 Follow Up Time: 09:00
--- NOTE | 2017-05-15 11:06 | CARD ---
APPROVED REPORT EKG Measurement Heart [id number] <Conclusion> Atrial fibrillation with premature ventricular or aberrantly conducted complexes Left axis deviation Abnormal ECG
== END 2017-05-13 16:56 | disposition home or self-care (01) ==
LOC: C.ER 16:44 → C.9E 18:47 → C.5S 23:53
PROVIDERS: ADMIT Internal Medicine; ATTEND Internal Medicine
DX: I11.0 Hypertensive heart disease with heart failure (principal); I48.91 Unspecified atrial fibrillation; F03.90 Unspecified dementia, unspecified severity, without behavioral disturbance, psychotic disturbance, mood disturbance, and anxiety; I50.9 Heart failure, unspecified; G89.29 Other chronic pain; M25.561 Pain in right knee
CPT/HCPCS: 36415; 71010; 71275; 80053; 82803; 83880; 84484; 85025; 85378; 85610; 85730; 93005; 93306; 96374; 96375; 97116; 97162; 99285; G0378; G8978; G8979; J1650; J1885; J1940; Q9967

== ENCOUNTER 2017-07-27 13:51 | Inpatient (IN) | payer MEDICARE ==
--- NOTE | 2017-07-27 15:05 | RAD ---
PROCEDURE: CHEST RADIOGRAPH, 1 VIEW HISTORY: Generalized weakness, falls COMPARISON: Comparison is made to 05/11/2017 she FINDINGS: LUNGS: No evidence of new infiltrate or consolidation in the lungs. PLEURA: No pneumothorax or pleural fluid seen. CARDIOVASCULAR: Cardiomegaly is again noted OSSEOUS STRUCTURES: No significant abnormalities. VISUALIZED UPPER ABDOMEN: Normal. OTHER FINDINGS: None. IMPRESSION: No active disease.
--- NOTE | 2017-07-27 15:07 | RAD ---
PROCEDURE: Right Knee Radiographs. HISTORY: Pain/swelling COMPARISON: None. FINDINGS: BONES: Normal. No fracture. JOINTS: Mhefbxee-nd-kyxuey osteoarthritic changes JOINT EFFUSION: None. OTHER FINDINGS: None. IMPRESSION: Moderate to severe osteoarthritic changes.
--- NOTE | 2017-07-27 15:13 | CT ---
PROCEDURE: CT HEAD WITHOUT CONTRAST. HISTORY: Head injury s/p fall COMPARISON: None available. TECHNIQUE: Axial computed tomography images were obtained through the head/brain without intravenous contrast. Radiation dose: Total exam DLP = 886.8 mGy-cm. This CT exam was performed using one or more of the following dose reduction techniques: Automated exposure control, adjustment of the mA and/or kV according to patient size, and/or use of iterative reconstruction technique. FINDINGS: HEMORRHAGE: No intracranial hemorrhage. BRAIN: No mass effect or edema. Mild atrophy and [id number] white matter changes suggestive of chronic microvascular ischemic disease. VENTRICLES: Unremarkable. No hydrocephalus. CALVARIUM: Unremarkable. PARANASAL SINUSES: Unremarkable as visualized. No significant inflammatory changes. MASTOID AIR CELLS: Unremarkable as visualized. No inflammatory changes. OTHER FINDINGS: None. IMPRESSION: No evidence of acute intracranial hemorrhage intracranial collection mass effect or midline shift
[2017-07-27 15:23] LABS: BASO % 0.5 % (0.0-2.0); EOS % 0.4 % (0.0-4.0); HEMATOCRIT 43.4 % (35.0-51.0); LYMPH # 1.2 K/uL (1.0-4.3); LYMPH % 16.3 % (20.0-40.0); MEAN CELL VOLUME 92.3 fL (80.0-94.0); MEAN CORPUSCULAR HEMOGLOBIN 31.7 pg (27.0-31.0); MEAN CORPUSCULAR HGB CONC 34.4 g/dL (33.0-37.0); MEAN PLATELET VOLUME 7.8 fL (7.2-11.7); MONO # 0.5 K/uL (0.0-0.8); MONO % 6.6 % (0.0-10.0); NRBC % 0.1 % (0.0-2.0); RED CELL DISTRIBUTION WIDTH 15.4 % (11.5-14.5); WHITE BLOOD COUNT 7.4 K/uL (4.8-10.8)
[2017-07-27 15:52] LABS: ALKALINE PHOSPHATASE 80 U/L (38-126); ALT/SGPT 37 U/L (21-72); AST/SGOT 30 U/L (17-59); BILIRUBIN,TOTAL 1.3 mg/dL (0.2-1.3); BLOOD UREA NITROGEN 11 mg/dL (9-20); CALCIUM 8.4 mg/dl (8.6-10.4); CARBON DIOXIDE 28 mmol/L (22-30); CHLORIDE 107 mmol/L (98-107); GFR AFRICAN-AMERICAN > 60; GLUCOSE,RANDOM 104 mg/dL (75-110); MAGNESIUM 2.1 mg/dL (1.6-2.3); PHOSPHOROUS 2.8 mg/dL (2.5-4.5); POTASSIUM 3.5 mmol/L (3.6-5.2); SODIUM 140 mmol/L (132-148); TOTAL PROTEIN 7.1 g/dL (6.3-8.3)
[2017-07-27 16:02] LABS: ALB/GLOB RATIO 0.9 (1.0-2.1)
[2017-07-27 16:09] LABS: FREE T4 1.04 ng/dL (0.78-2.19)
[2017-07-27 16:23] LABS: THYROID STIMULATING HORMONE 0.83 mIU/L (0.46-4.68)
[2017-07-27 16:31] LABS: INR 1.2
--- NOTE | 2017-07-27 16:36 | C.PDOC ---
History Of Present Illness Pt was brought in by his because he has been falling frequently. Time Seen by Provider: 07/27/17 14:19 Chief Complaint (Nursing): Dizziness/Lightheaded History Per: Patient, Family, Golf Manager History/Exam Limitations: language barrier, other (Dementia) Onset/Duration Of Symptoms: Days (few), Intermittent Episodes Current Symptoms Are (Timing): Still Present Associated Symptoms Preceding Syncopal Episode: Lightheadedness, Worse With Standing Possible Causative Factor(s): Lightheaded W/Standing, Lightheaded W/Exertion Fall Associated With With Symptoms: Yes Severity: Moderate Additional History Per: Prior Records - Symptoms Of CVA Associated Symptoms: Decreased Ability To Walk Recent Aspirin Use: Yes (Last Taken) Current Coumadin Use?: No Recent Head Trauma: Yes Past Medical History Reviewed: Historical Data, Nursing Documentation, Vital Signs Vital Signs: Last Vital Signs Temp 98.9 F 07/27/17 14:14 Pulse 85 07/27/17 14:14 Resp 22 07/27/17 14:14 BP 147/94 H 07/27/17 14:14 Pulse Ox 97 07/27/17 14:14 - Medical History PMH: Arthritis, Atrial Fibrillation, CHF, Dementia, HTN Family History: States: Unknown Family Hx - Social History Hx Tobacco Use: No Hx Alcohol Use: No Hx Substance Use: No - Immunization History Hx Tetanus Toxoid Vaccination: No Hx Influenza Vaccination: No Hx Pneumococcal Vaccination: No Review Of Systems Except As Marked, All Systems Reviewed And Found Negative. Constitutional: Negative for: Fever Cardiovascular: Negative for: Chest Pain Respiratory: Negative for: Shortness of Breath Gastrointestinal: Negative for: Vomiting, Abdominal Pain, Diarrhea Musculoskeletal: Positive for: Other (Right knee pain). Negative for: Neck Pain , Back Pain Neurological: Negative for: Weakness, Numbness, Seizures Physical Exam - Physical Exam Appears: No Acute Distress Skin: Normal Color, Warm, Dry Head: Normacephalic, No Laceration, Other (Scalp Contusion) Eye(s): bilateral: PERRL, EOMI Neck: Normal ROM, No Midline Cervical Tenderness, No Step Off Deformity, Supple Cardiovascular: Rhythm Regular Respiratory: Normal Breath Sounds, No Accessory Muscle Use Gastrointestinal/Abdominal: Soft, No Tenderness Back: No CVA Tenderness Extremity: Normal ROM, Tenderness (right knee), Swelling (right knee) Neurological/Psych: Normal Motor, Normal Sensation ED Course And Treatment - Laboratory Results Result Diagrams: 07/27/17 15:18 07/27/17 15:18 Lab Interpretation: No Acute Changes ECG: Interpreted By Me, Viewed By Me ECG Rhythm: Atrial Fibrillation, PVC, Nonspecific Changes ECG Interpretation: Abnormal Interpretation Of ECG: Afib with slow ventricular response. Rate From EC O2 Sat by Pulse Oximetry: 97 Pulse Ox Interpretation: Normal - Radiology CXR: Viewed By Me, Read By Radiologist CXR Interpretation: Yes: No Acute Disease, Cardiomegaly - Other Rad Right knee x-rays X-Ray: Viewed By Me, Read By Radiologist Interpretation: IMPRESSION: Moderate to severe osteoarthritic changes. - CT Scan/US CT head Other Rad Studies (CT/US): Read By Radiologist, Radiology Report Reviewed CT/US Interpretation: IMPRESSION: No evidence of acute intracranial hemorrhage intracranial collection mass effect or midline shift Progress - Interventions Interventions:: Observation - Data Reviewed Data Reviewed: Lab, Diagnostic imaging, EKG, Old records - Continuity of Care Discussed patient case with:: Patient, Family-HIPPA compliant, ED Nurse, Covering for PMD - Patient Plan Patient Plan: Admission, Telemetry Disposition Discussed With : James Mcknight Comment: He accepted pt on his service and pt's PMD is Dr. Oliveira. Doctor Will See Patient In The: Hospital Counseled Patient/Family Regarding: Studies Performed, Diagnosis - Disposition Disposition: HOSPITALIZED Disposition Time: 16:41 Condition: FAIR - Clinical Impression Clinical Impression: Frequent falls, Atrial fibrillation with slow ventricular response, Dizziness
[2017-07-27 16:41] LABS: RBC URINE 6 /hpf (0-3); URINE BILIRUBIN NEGATIVE (NEGATIVE); URINE BLOOD NEGATIVE (NEGATIVE); URINE COLOR Yellow (YELLOW); URINE GLUCOSE (UA) NORMAL (Normal); URINE KETONE NEGATIVE (NEGATIVE); URINE LEUKOCYTE ESTERASE NEG Leu/uL (Negative); URINE PROTEIN NEGATIVE (NEGATIVE); WBC URINE 1 /hpf (0-5)
[2017-07-28 08:48] LABS: TROPONIN I 0.013 ng/mL (0.00-0.120)
[2017-07-28] MEDS: Enoxaparin 80 mg Syringe SC SCH ×2 (10:45→21:22)
--- NOTE | 2017-07-28 14:35 | CP.PCM.HP ---
History of Present Illness - History of Present Illness History of Present Illness: 86 yo M with PMHx of A-Fib, HTN, chronic right knee pain, presented to the ED for frequent falls. The patient is a poor historian and is accompanied by his . He also had a previous admission for knee pain. Patient in ED is found to have a Afib and denies fever, chills, chest pain, palpitations, diarrhea, vomiting, abdomial pain and dizziness. also denies loss of consciousness with falls. Present on Admission - Present on Admission Any Indicators Present on Admission: No History of DVT/PE: No History of Uncontrolled Diabetes: No Urinary Catheter: No Decubitus Ulcer Present: No Review of Systems - Review of Systems All systems: reviewed and no additional remarkable complaints except (See HPI rest negative) Past Patient History - Infectious Disease Hx of Infectious Diseases: None - Past Medical History & Family History Past Medical History?: Yes - Past Social History Smoking Status: Never Smoked - CARDIAC Hx Congestive Heart Failure: Yes Hx Hypertension: Yes - PULMONARY Hx Respiratory Disorders: No - NEUROLOGICAL Hx Dementia: Yes - HEENT Hx HEENT Problems: No - RENAL Hx Chronic Kidney Disease: No - ENDOCRINE/METABOLIC Hx Endocrine Disorders: No - MUSCULOSKELETAL/RHEUMATOLOGICAL Hx Arthritis: Yes - GASTROINTESTINAL Hx Gastrointestinal Disorders: No - GENITOURINARY/GYNECOLOGICAL Hx Genitourinary Disorders: No - PSYCHIATRIC Hx Substance Use: No - SURGICAL HISTORY Hx Surgeries: No Hx Cataract Extraction: Yes - ANESTHESIA Hx Anesthesia: No Hx Anesthesia Reactions: No Hx Malignant Hyperthermia: No Has any member of the family had a problem w/ anesthesia?: No Meds Allergies/Adverse Reactions: Allergies Allergy/AdvReac Type Severity Reaction Status Date / Time No Known Allergies Allergy Verified 07/27/17 14:15 Physical Exam - Head Exam Head Exam: NORMAL INSPECTION - Eye Exam Eye Exam: Normal appearance - ENT Exam ENT Exam: Mucous Membranes Moist - Neck Exam Neck exam: Positive for: Normal Inspection - Respiratory Exam Respiratory Exam: Clear to Auscultation Bilateral - Cardiovascular Exam Cardiovascular Exam: Irregular Rhythm, +S1, +S2 - GI/Abdominal Exam GI & Abdominal Exam: Normal Bowel Sounds, Soft - Extremities Exam Extremities exam: Positive for: normal inspection Results - Vital Signs Recent Vital Signs: Last Vital Signs Temp 98.2 F 07/28/17 07:00 Pulse 69 07/28/17 07:00 Resp 18 07/28/17 07:00 BP 165/93 H 07/28/17 09:58 Pulse Ox 96 07/28/17 07:00 - Labs Result Diagrams: 07/27/17 15:18 07/27/17 15:18 Labs: Laboratory Results - last 24 hr 07/27/17 07/27/17 07/27/17 15:18 15:18 15:18 WBC 7.4 RBC 4.71 Hgb 14.9 Hct 43.4 MCV 92.3 MCH 31.7 H MCHC 34.4 RDW 15.4 H Plt Count 180 MPV 7.8 Neut % (Auto) 76.2 H Lymph % (Auto) 16.3 L [place] % (Auto) 6.6 Eos % (Auto) 0.4 Baso % (Auto) 0.5 Neut # 5.7 Lymph # 1.2 [place] # 0.5 Eos # 0.0 Baso # 0.0 PT INR APTT Sodium 140 Potassium 3.5 L Chloride 107 Carbon Dioxide 28 Anion Gap 8 L BUN 11 Creatinine 0.8 Est GFR ( Amer) > 60 Est GFR (Non-Af Amer) > 60 Random Glucose 104 Calcium 8.4 L Phosphorus 2.8 Magnesium 2.1 Total Bilirubin 1.3 AST 30 ALT 37 Alkaline Phosphatase 80 Total Creatine Kinase CK-MB (Mass) Troponin I < 0.0120 Total Protein 7.1 Albumin 3.4 L Globulin 3.7 Albumin/Globulin Ratio 0.9 L Free T4 1.04 TSH 3rd Generation 0.83 Urine Color Urine Clarity Urine pH Ur Specific [place] Urine Protein Urine Glucose (UA) Urine Ketones Urine Blood Urine Nitrate Urine Bilirubin Urine Urobilinogen Ur Leukocyte Esterase Urine WBC (Auto) Urine RBC (Auto) Ur Squamous Epith Cells 07/27/17 07/27/17 07/28/17 16:18 16:33 00:28 WBC RBC Hgb Hct MCV MCH MCHC RDW Plt Count MPV Neut % (Auto) Lymph % (Auto) [place] % (Auto) Eos % (Auto) Baso % (Auto) Neut # Lymph # [place] # Eos # Baso # PT 13.5 H INR 1.2 APTT 34 Sodium Potassium Chloride Carbon Dioxide Anion Gap BUN Creatinine Est GFR ( Amer) Est GFR (Non-Af Amer) Random Glucose Calcium Phosphorus Magnesium Total Bilirubin AST ALT Alkaline Phosphatase Total Creatine Kinase 75 CK-MB (Mass) 0.87 Troponin I < 0.0120 Total Protein Albumin Globulin Albumin/Globulin Ratio Free T4 TSH 3rd Generation Urine Color Yellow Urine Clarity Clear Urine pH 6.0 Ur Specific [place] 1.016 Urine Protein Negative Urine Glucose (UA) Normal Urine Ketones Negative Urine Blood Negative Urine Nitrate Negative Urine Bilirubin Negative Urine Urobilinogen 4.0 Ur Leukocyte Esterase Neg Urine WBC (Auto) 1 Urine RBC (Auto) 6 H Ur Squamous Epith Cells < 1 07/28/17 07/28/17 07:19 13:41 WBC RBC Hgb Hct MCV MCH MCHC RDW Plt Count MPV Neut % (Auto) Lymph % (Auto) [place] % (Auto) Eos % (Auto) Baso % (Auto) Neut # Lymph # [place] # Eos # Baso # PT INR APTT Sodium Potassium Chloride Carbon Dioxide Anion Gap BUN Creatinine Est GFR ( Amer) Est GFR (Non-Af Amer) Random Glucose Calcium Phosphorus Magnesium Total Bilirubin AST ALT Alkaline Phosphatase Total Creatine Kinase 89 114 CK-MB (Mass) 1.07 1.17 Troponin I 0.0130 < 0.0120 Total Protein Albumin Globulin Albumin/Globulin Ratio Free T4 TSH 3rd Generation Urine Color Urine Clarity Urine pH Ur Specific [place] Urine Protein Urine Glucose (UA) Urine Ketones Urine Blood Urine Nitrate Urine Bilirubin Urine Urobilinogen Ur Leukocyte Esterase Urine WBC (Auto) Urine RBC (Auto) Ur Squamous Epith Cells Assessment & Plan (1) Atrial fibrillation with slow ventricular response Status: Acute (2) Frequent falls Status: Acute (3) Chronic congestive heart failure Status: Acute (4) Hypertension Status: Acute - Assessment and Plan (Free Text) Plan: Cardiac enzymes negative Cardiology consult Telemetry monitoring Lovenox Lasix Lisinopril 40 mg daily Aspirin Physical therapy Needs evaluation for placement in long-term care facility DVT/GI prophylaxis
[2017-07-28] MEDS ORDERED: DiphenhydrAMINE 12.5 mg/5 ml LIQ UD (5 ml) PO PRN (18:13)
--- NOTE | 2017-07-28 19:00 | CARD ---
APPROVED REPORT EKG Measurement Heart [id number] <Conclusion> Sinus rhythm with 1st degree AV block with premature supraventricular complexes and with frequent premature ventricular compl Otherwise normal ECG
--- NOTE | 2017-07-28 19:01 | CARD ---
APPROVED REPORT EKG Measurement Heart [id number] <Conclusion> Atrial fibrillation with premature ventricular or aberrantly conducted complexes Abnormal ECG
--- NOTE | 2017-07-28 23:10 | CP.PCM.CON ---
History of Present Illness - History of Present Illness History of Present Illness: Patient consulted for bradycardia Patient in A Fib Recommend ECHO and full anticoagulation with Eliquis for A Fib Past Patient History - Infectious Disease Hx of Infectious Diseases: None - Past Medical History & Family History Past Medical History?: Yes - Past Social History Smoking Status: Never Smoked - CARDIAC Hx Congestive Heart Failure: Yes Hx Hypertension: Yes - PULMONARY Hx Respiratory Disorders: No - NEUROLOGICAL Hx Dementia: Yes - HEENT Hx HEENT Problems: No - RENAL Hx Chronic Kidney Disease: No - ENDOCRINE/METABOLIC Hx Endocrine Disorders: No - MUSCULOSKELETAL/RHEUMATOLOGICAL Hx Arthritis: Yes - GASTROINTESTINAL Hx Gastrointestinal Disorders: No - GENITOURINARY/GYNECOLOGICAL Hx Genitourinary Disorders: No - PSYCHIATRIC Hx Substance Use: No - SURGICAL HISTORY Hx Surgeries: No Hx Cataract Extraction: Yes - ANESTHESIA Hx Anesthesia: No Hx Anesthesia Reactions: No Hx Malignant Hyperthermia: No Has any member of the family had a problem w/ anesthesia?: No Meds Allergies/Adverse Reactions: Allergies Allergy/AdvReac Type Severity Reaction Status Date / Time No Known Allergies Allergy Verified 07/27/17 14:15 - Medications Medications: Current Medications Aspirin (Aspirin Chewable) 81 mg PO DAILY [facility] Last Admin: 07/28/17 09:58 Dose: 81 mg Diphenhydramine HCl (Benadryl) 12.5 mg PO Q8H PRN PRN Reason: Itching / Pruritus Last Admin: 07/28/17 18:59 Dose: 12.5 mg Donepezil HCl (Aricept) 5 mg PO HS [facility] Last Admin: 07/28/17 21:25 Dose: Not Given Enoxaparin Sodium (Lovenox) 80 mg SC Q12 [facility] Last Admin: 07/28/17 21:22 Dose: 80 mg Furosemide (Lasix) 20 mg PO DAILY [facility] Last Admin: 07/28/17 09:58 Dose: 20 mg Lisinopril (Zestril) 40 mg PO DAILY [facility] Last Admin: 07/28/17 10:01 Dose: 40 mg Pneumococcal Polyvalent Vaccine (Pneumovax 23 Vaccine) 0.5 ml IM .ONCE ONE Stop: 07/30/17 10:01 Results - Vital Signs Recent Vital Signs: Last Vital Signs Temp 98 F 07/28/17 15:00 Pulse 70 07/28/17 16:00 Resp 20 07/28/17 15:00 BP 137/82 07/28/17 15:00 Pulse Ox 96 07/28/17 15:00 - Labs Result Diagrams: 07/27/17 15:18 07/27/17 15:18 Labs: Laboratory Results - last 24 hr 07/28/17 07/28/17 07/28/17 00:28 07:19 13:41 Total Creatine Kinase 75 89 114 CK-MB (Mass) 0.87 1.07 1.17 Troponin I < 0.0120 0.0130 < 0.0120
[2017-07-29] MEDS: Enoxaparin 80 mg Syringe SC SCH ×3 (10:27→21:07)
--- NOTE | 2017-07-29 13:49 | CP.PCM.PN ---
Subjective - Date & Time of Evaluation Date of Evaluation: 07/29/17 Time of Evaluation: 13:49 - Subjective Subjective: Patient seen and examined No events overnight Objective - Vital Signs/Intake and Output Vital Signs (last 24 hours): Temp Pulse Resp BP Pulse Ox 98.1 F 72 20 123/88 97 07/29/17 08:00 07/29/17 08:00 07/29/17 08:00 07/29/17 10:27 07/29/17 08:00 Intake and Output: 07/29/17 07/29/17 06:59 18:59 Intake Total 210 Balance 210 - Medications Medications: Current Medications Aspirin (Aspirin Chewable) 81 mg PO DAILY [facility] BEDS AT [facility] Last Admin: 07/29/17 10:26 Dose: 81 mg Diphenhydramine HCl (Benadryl) 12.5 mg PO Q8H PRN PRN Reason: Itching / Pruritus Last Admin: 07/28/17 18:59 Dose: 12.5 mg Donepezil HCl (Aricept) 5 mg PO HS [facility] 234 BEDS AT [facility] Last Admin: 07/28/17 21:25 Dose: Not Given Enoxaparin Sodium (Lovenox) 65 mg SC Q12 [facility] 234 BEDS AT [facility] Last Admin: 07/29/17 10:27 Dose: 65 mg Furosemide (Lasix) 20 mg PO DAILY [facility] 234 BEDS AT [facility] Last Admin: 07/29/17 10:27 Dose: 20 mg Lisinopril (Zestril) 40 mg PO DAILY [facility] 234 BEDS AT [facility] Last Admin: 07/29/17 10:31 Dose: 40 mg Pneumococcal Polyvalent Vaccine (Pneumovax 23 Vaccine) 0.5 ml IM .ONCE ONE Stop: 07/30/17 10:01 - Labs Labs: 07/27/17 15:18 07/27/17 15:18 PT 13.5 SECONDS (9.7-12.2) H 07/27/17 16:18 INR 1.2 07/27/17 16:18 APTT 34 SECONDS (21-34) 07/27/17 16:18 - Head Exam Head Exam: NORMAL INSPECTION - Eye Exam Eye Exam: Normal appearance - ENT Exam ENT Exam: Mucous Membranes Moist - Respiratory Exam Respiratory Exam: Clear to Ausculation Bilateral - Cardiovascular Exam Cardiovascular Exam: REGULAR RHYTHM, +S1, +S2 - GI/Abdominal Exam GI & Abdominal Exam: Soft, Normal Bowel Sounds - Extremities Exam Extremities Exam: Normal Inspection - Neurological Exam Neurological Exam: Alert, Oriented x3 - Psychiatric Exam Psychiatric exam: Normal Affect, Normal Mood Assessment and Plan (1) Atrial fibrillation with slow ventricular response Status: Acute (2) Frequent falls Status: Acute (3) Chronic congestive heart failure Status: Acute (4) Hypertension Status: Acute - Assessment and Plan (Free Text) Plan: Cardiology consult appreciated Lovenox Lasix Lisinopril 40 mg daily Aspirin PT/OT DVT/GI prophylaxis
--- NOTE | 2017-07-29 23:41 | CP.PCM.PN ---
Subjective - Date & Time of Evaluation Date of Evaluation: 07/29/17 Time of Evaluation: 18:20 - Subjective Subjective: Patient comfortable Objective - Vital Signs/Intake and Output Vital Signs (last 24 hours): Temp Pulse Resp BP Pulse Ox 98.0 F 80 20 116/78 98 07/29/17 15:05 07/29/17 16:02 07/29/17 15:05 07/29/17 15:05 07/29/17 15:05 Intake and Output: 07/29/17 07/30/17 18:59 06:59 Intake Total 400 240 Output Total 300 Balance 400 -60 - Medications Medications: Current Medications Aspirin (Aspirin Chewable) 81 mg PO DAILY [facility] Last Admin: 07/29/17 10:26 Dose: 81 mg Diphenhydramine HCl (Benadryl) 12.5 mg PO Q8H PRN PRN Reason: Itching / Pruritus Last Admin: 07/28/17 18:59 Dose: 12.5 mg Donepezil HCl (Aricept) 5 mg PO HS [facility] Last Admin: 07/29/17 21:07 Dose: 5 mg Enoxaparin Sodium (Lovenox) 65 mg SC Q12 [facility] Last Admin: 07/29/17 21:07 Dose: 65 mg Furosemide (Lasix) 20 mg PO DAILY [facility] Last Admin: 07/29/17 10:27 Dose: 20 mg Lisinopril (Zestril) 40 mg PO DAILY [facility] Last Admin: 07/29/17 10:31 Dose: 40 mg Pneumococcal Polyvalent Vaccine (Pneumovax 23 Vaccine) 0.5 ml IM .ONCE ONE Stop: 07/30/17 10:01 - Labs Labs: 07/27/17 15:18 07/27/17 15:18 PT 13.5 SECONDS (9.7-12.2) H 07/27/17 16:18 INR 1.2 07/27/17 16:18 APTT 34 SECONDS (21-34) 07/27/17 16:18
[2017-07-30] MEDS ORDERED: Influenza Vaccine 60 mcg/0.5 mL SYR (4YR UP) IM ONE (10:00)
[2017-07-30] MEDS ORDERED: Pneumococcal 23-Valent Vaccine IM ONE (10:00)
[2017-07-30] MEDS: Enoxaparin 80 mg Syringe SC SCH ×2 (10:04→21:23)
[2017-07-30 11:21] LABS: BASO % 0.7 % (0.0-2.0); EOS # 0.1 K/uL (0.0-0.7); EOS % 1.8 % (0.0-4.0); HEMATOCRIT 46.9 % (35.0-51.0); LYMPH % 20.5 % (20.0-40.0); MEAN CELL VOLUME 92.3 fL (80.0-94.0); MEAN CORPUSCULAR HEMOGLOBIN 32.1 pg (27.0-31.0); MEAN CORPUSCULAR HGB CONC 34.7 g/dL (33.0-37.0); MEAN PLATELET VOLUME 8.4 fL (7.2-11.7); MONO # 0.5 K/uL (0.0-0.8); WHITE BLOOD COUNT 5.1 K/uL (4.8-10.8)
[2017-07-30 11:56] LABS: ALB/GLOB RATIO 0.9 (1.0-2.1); ALKALINE PHOSPHATASE 74 U/L (38-126); ALT/SGPT 44 U/L (21-72); AST/SGOT 25 U/L (17-59); BILIRUBIN,TOTAL 1.8 mg/dL (0.2-1.3); BLOOD UREA NITROGEN 17 mg/dL (9-20); CALCIUM 8.3 mg/dl (8.6-10.4); CARBON DIOXIDE 32 mmol/L (22-30); CHLORIDE 102 mmol/L (98-107); GFR AFRICAN-AMERICAN > 60; GLUCOSE,RANDOM 109 mg/dL (75-110); POTASSIUM 3.2 mmol/L (3.6-5.2); SODIUM 137 mmol/L (132-148); TOTAL PROTEIN 7.3 g/dL (6.3-8.3)
--- NOTE | 2017-07-30 14:08 | CP.PCM.PN ---
Subjective - Date & Time of Evaluation Date of Evaluation: 07/30/17 Time of Evaluation: 14:08 - Subjective Subjective: Patient seen and examined No events overnight Objective - Vital Signs/Intake and Output Vital Signs (last 24 hours): Temp Pulse Resp BP Pulse Ox 98.1 F 70 20 124/85 98 07/30/17 07:00 07/30/17 07:00 07/30/17 07:00 07/30/17 10:04 07/30/17 07:00 Intake and Output: 07/30/17 07/30/17 06:59 18:59 Intake Total 250 Output Total 500 Balance -250 - Medications Medications: Current Medications Aspirin (Aspirin Chewable) 81 mg PO DAILY [facility] Last Admin: 07/30/17 10:04 Dose: 81 mg Diphenhydramine HCl (Benadryl) 12.5 mg PO Q8H PRN PRN Reason: Itching / Pruritus Last Admin: 07/28/17 18:59 Dose: 12.5 mg Donepezil HCl (Aricept) 5 mg PO HS [facility] Last Admin: 07/29/17 21:07 Dose: 5 mg Enoxaparin Sodium (Lovenox) 65 mg SC Q12 [facility] Last Admin: 07/30/17 10:04 Dose: 65 mg Furosemide (Lasix) 20 mg PO DAILY [facility] Last Admin: 07/30/17 10:04 Dose: 20 mg Lisinopril (Zestril) 40 mg PO DAILY [facility] Last Admin: 07/30/17 10:04 Dose: 40 mg - Labs Labs: 07/30/17 11:14 07/30/17 11:14 PT 13.5 SECONDS (9.7-12.2) H 07/27/17 16:18 INR 1.2 07/27/17 16:18 APTT 34 SECONDS (21-34) 07/27/17 16:18 - Head Exam Head Exam: NORMAL INSPECTION - Eye Exam Eye Exam: Normal appearance - ENT Exam ENT Exam: Mucous Membranes Moist - Respiratory Exam Respiratory Exam: Clear to Ausculation Bilateral - GI/Abdominal Exam GI & Abdominal Exam: Soft, Normal Bowel Sounds - Extremities Exam Extremities Exam: Normal Inspection Assessment and Plan (1) Atrial fibrillation with slow ventricular response Status: Acute (2) Frequent falls Status: Acute (3) Chronic congestive heart failure Status: Acute (4) Hypertension Status: Acute - Assessment and Plan (Free Text) Plan: Heart rate remains rate controlled Lovenox Lasix Lisinopril 40 mg daily Aspirin PT/OT Needs placement DVT/GI prophylaxis
[2017-07-30] MEDS ORDERED: Potassium Chloride 20 mEq/15 ml LIQ UD PO ONE (14:09)
[2017-07-31] MEDS: Enoxaparin 80 mg Syringe SC SCH ×2 (10:44→22:07)
--- NOTE | 2017-07-31 13:12 | PCM.FALL ---
Post Fall Progress Note - Post Fall Fall Date: 07/31/17 Fall Time: 12:30 Description of Fall: Patient is a 86 year old male with past medical history of fall, who had a " Code Sta" today at 12:30pm. Patient's was witness. Patient's was assisting patient out of chair to the comode or bathrooom and patient sled from the chair to the floor. while being held up by his . Patient was stable when the team arrived to the room; he was alert, awake and oriented. Patient and his denied any head trauma, any body injury, chest pain, SOB, palpitations, dizziness, headache, abdominal pain, back pain or hip pain. Patient did admit to right knee pain, which patient states his chronic. Patient' s vitals were stable during the code. Patient was assisted from the floor and back to his bed. Patient had no hip pain upon palpation, and no pain on hip flexion. - Post Fall Exam Vital Sign: Temp Pulse Resp BP Pulse Ox 97.8 F 78 20 119/79 99 07/31/17 08:48 07/31/17 08:48 07/31/17 08:48 07/31/17 10:45 07/31/17 08:48 Skull Exam: Negative for: Scalp wound, Scalp hematoma, Scalp depression, Ridge in skull Eye Exam: Positive for: Pupils equal, Pupils reactive Ear Exam: Negative for: Discharge, Bleeding Nose Exam: Negative for: Discharge, Bleeding Skin Exam: Negative for: Lacerations, Grazes, Bruising Mouth Exam: Negative for: Tongue bitten, Teeth dislodge Neck Exam: Negative for: Tenderness, Tingling, Weakness Spinal Exam: Negative for: Tenderness, Tingling, Weakness Chest Exam: Negative for: Difficulty breathing, Tenderness in collar bones, Tenderness in ribs Abdomen Exam: Negative for: Tenderness Pelvic Exam: Negative for: Tenderness Arm Exam: Negative for: Deformity, Alteration in range of movement Leg Exam: Negative for: Deformity, Alteration in range of movement Impression/Plan: Notify PMD No imaging studies at this time, hip stable on palpation, hip flexion and ROM with normal, no head laceration, bruise or bumps, bilateral UE ROM WNL Neuro exam WNL. Patient was able to stand up on his feet with assistance Continue to monitor Continue fall precautions Advise to not close the curtains so that patient can be visualize on the video camera/recorder
--- NOTE | 2017-07-31 13:14 | CARD ---
APPROVED REPORT EKG Measurement Heart [id number] <Conclusion> Atrial fibrillation with premature ventricular or aberrantly conducted complexes Left axis deviation Abnormal ECG
--- NOTE | 2017-07-31 13:15 | CARD ---
APPROVED REPORT EKG Measurement Heart [id number] <Conclusion> Atrial fibrillation with slow ventricular response with premature ventricular or aberrantly conducted complexes Abnormal ECG
[2017-07-31 14:15] LABS: BLOOD UREA NITROGEN 18 mg/dL (9-20); CALCIUM 8.6 mg/dl (8.6-10.4); CARBON DIOXIDE 33 mmol/L (22-30); CHLORIDE 103 mmol/L (98-107); GFR AFRICAN-AMERICAN > 60; GLUCOSE,RANDOM 107 mg/dL (75-110); POTASSIUM 4.2 mmol/L (3.6-5.2); SODIUM 138 mmol/L (132-148)
--- NOTE | 2017-07-31 16:42 | CP.PCM.PN ---
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 from insurance manager intermediate anticoagulation upon discharge discussed with Dr. Ga , not a candidate for any anticoagulation secondary to frequent falls except aspirin , and needs to discuss this with family upon discharge d/w Dr. Mcknight Objective - Vital Signs/Intake and Output Vital Signs (last 24 hours): Temp Pulse Resp BP Pulse Ox 98.3 F 77 16 129/76 97 07/31/17 15:00 07/31/17 15:00 07/31/17 15:00 07/31/17 15:00 07/31/17 15:00 Intake and Output: 07/31/17 07/31/17 06:59 18:59 Intake Total 320 600 Output Total 200 400 Balance 120 200 - Medications Medications: Current Medications Aspirin (Aspirin Chewable) 81 mg PO DAILY [facility] Last Admin: 07/31/17 10:45 Dose: 81 mg Diphenhydramine HCl (Benadryl) 12.5 mg PO Q8H PRN PRN Reason: Itching / Pruritus Last Admin: 07/28/17 18:59 Dose: 12.5 mg Donepezil HCl (Aricept) 5 mg PO HS [facility] Last Admin: 07/30/17 21:22 Dose: 5 mg Enoxaparin Sodium (Lovenox) 65 mg SC Q12 [facility] Last Admin: 07/31/17 10:44 Dose: 65 mg Furosemide (Lasix) 20 mg PO DAILY [facility] Last Admin: 07/31/17 10:45 Dose: 20 mg Lisinopril (Zestril) 40 mg PO DAILY [facility] Last Admin: 07/31/17 10:45 Dose: 40 mg - Labs Labs: 07/30/17 11:14 07/31/17 13:50 PT 13.5 SECONDS (9.7-12.2) H 07/27/17 16:18 INR 1.2 07/27/17 16:18 APTT 34 SECONDS (21-34) 07/27/17 16:18
--- NOTE | 2017-07-31 17:31 | CP.PCM.PN ---
Subjective - Date & Time of Evaluation Date of Evaluation: 07/31/17 Time of Evaluation: 17:22 - Subjective Subjective: Patient seen and examined Status post fall with no injuries No complaints Objective - Vital Signs/Intake and Output Vital Signs (last 24 hours): Temp Pulse Resp BP Pulse Ox 98.3 F 67 16 129/76 97 07/31/17 15:00 07/31/17 16:00 07/31/17 15:00 07/31/17 15:00 07/31/17 15:00 Intake and Output: 07/31/17 07/31/17 06:59 18:59 Intake Total 320 600 Output Total 200 400 Balance 120 200 - Medications Medications: Current Medications Aspirin (Aspirin Chewable) 81 mg PO DAILY [facility] Last Admin: 07/31/17 10:45 Dose: 81 mg Diphenhydramine HCl (Benadryl) 12.5 mg PO Q8H PRN PRN Reason: Itching / Pruritus Last Admin: 07/28/17 18:59 Dose: 12.5 mg Donepezil HCl (Aricept) 5 mg PO HS [facility] Last Admin: 07/30/17 21:22 Dose: 5 mg Enoxaparin Sodium (Lovenox) 65 mg SC Q12 [facility] Last Admin: 07/31/17 10:44 Dose: 65 mg Furosemide (Lasix) 20 mg PO DAILY [facility] Last Admin: 07/31/17 10:45 Dose: 20 mg Lisinopril (Zestril) 40 mg PO DAILY [facility] Last Admin: 07/31/17 10:45 Dose: 40 mg - Labs Labs: 07/30/17 11:14 07/31/17 13:50 PT 13.5 SECONDS (9.7-12.2) H 07/27/17 16:18 INR 1.2 07/27/17 16:18 APTT 34 SECONDS (21-34) 07/27/17 16:18 - Head Exam Head Exam: NORMAL INSPECTION - Eye Exam Eye Exam: Normal appearance - ENT Exam ENT Exam: Mucous Membranes Moist - Respiratory Exam Respiratory Exam: Clear to Ausculation Bilateral, NORMAL BREATHING PATTERN - Cardiovascular Exam Cardiovascular Exam: REGULAR RHYTHM, +S1, +S2 - GI/Abdominal Exam GI & Abdominal Exam: Soft, Normal Bowel Sounds - Extremities Exam Extremities Exam: Normal Inspection - Neurological Exam Neurological Exam: Alert - Psychiatric Exam Psychiatric exam: Normal Affect, Normal Mood Assessment and Plan (1) Atrial fibrillation with slow ventricular response Status: Acute (2) Frequent falls Status: Acute (3) Chronic congestive heart failure Status: Acute (4) Hypertension Status: Acute - Assessment and Plan (Free Text) Plan: Patient is not a candidate for long-term anticoagulation as he had an episode of fall and also has a history of frequent falls. We will discuss with family regarding the risk and benefits DC Lovenox Aspirin 81 mg daily Continue rest of medication
--- NOTE | 2017-07-31 19:56 | CP.PCM.PN ---
Subjective - Date & Time of Evaluation Date of Evaluation: 07/31/17 Time of Evaluation: 15:00 - Subjective Subjective: Patient seen and evaluated Objective - Vital Signs/Intake and Output Vital Signs (last 24 hours): Temp Pulse Resp BP Pulse Ox 98.3 F 67 16 129/76 97 07/31/17 15:00 07/31/17 16:00 07/31/17 15:00 07/31/17 15:00 07/31/17 15:00 Intake and Output: 07/31/17 08/01/17 18:59 06:59 Intake Total 600 Output Total 400 Balance 200 - Medications Medications: Current Medications Aspirin (Aspirin Chewable) 81 mg PO DAILY [facility] Last Admin: 07/31/17 10:45 Dose: 81 mg Diphenhydramine HCl (Benadryl) 12.5 mg PO Q8H PRN PRN Reason: Itching / Pruritus Last Admin: 07/28/17 18:59 Dose: 12.5 mg Donepezil HCl (Aricept) 5 mg PO HS [facility] Last Admin: 07/30/17 21:22 Dose: 5 mg Enoxaparin Sodium (Lovenox) 65 mg SC Q12 [facility] Last Admin: 07/31/17 10:44 Dose: 65 mg Furosemide (Lasix) 20 mg PO DAILY [facility] Last Admin: 07/31/17 10:45 Dose: 20 mg Lisinopril (Zestril) 40 mg PO DAILY [facility] Last Admin: 07/31/17 10:45 Dose: 40 mg - Labs Labs: 07/30/17 11:14 07/31/17 13:50 PT 13.5 SECONDS (9.7-12.2) H 07/27/17 16:18 INR 1.2 07/27/17 16:18 APTT 34 SECONDS (21-34) 07/27/17 16:18
[2017-08-01] MEDS: Enoxaparin 80 mg Syringe SC SCH ×2 (09:36→22:43)
--- NOTE | 2017-08-01 14:55 | CP.PCM.PN ---
Subjective - Date & Time of Evaluation Date of Evaluation: 08/01/17 Time of Evaluation: 14:55 - Subjective Subjective: Patient seen and examined No events overnight Objective - Vital Signs/Intake and Output Vital Signs (last 24 hours): Temp Pulse Resp BP Pulse Ox 97.7 F 81 20 126/84 97 08/01/17 07:00 08/01/17 08:10 08/01/17 07:00 08/01/17 09:37 08/01/17 07:00 Intake and Output: 08/01/17 08/01/17 06:59 18:59 Intake Total 720 Output Total 600 Balance 120 - Medications Medications: Current Medications Aspirin (Aspirin Chewable) 81 mg PO DAILY [facility] Last Admin: 08/01/17 09:36 Dose: 81 mg Diphenhydramine HCl (Benadryl) 12.5 mg PO Q8H PRN PRN Reason: Itching / Pruritus Last Admin: 07/28/17 18:59 Dose: 12.5 mg Donepezil HCl (Aricept) 5 mg PO HS [facility] Last Admin: 07/31/17 22:07 Dose: 5 mg Enoxaparin Sodium (Lovenox) 65 mg SC Q12 [facility] Last Admin: 08/01/17 09:36 Dose: 65 mg Furosemide (Lasix) 20 mg PO DAILY [facility] Last Admin: 08/01/17 09:37 Dose: 20 mg Lisinopril (Zestril) 40 mg PO DAILY [facility] Last Admin: 08/01/17 09:37 Dose: 40 mg - Labs Labs: 07/30/17 11:14 07/31/17 13:50 PT 13.5 SECONDS (9.7-12.2) H 07/27/17 16:18 INR 1.2 07/27/17 16:18 APTT 34 SECONDS (21-34) 07/27/17 16:18 - Head Exam Head Exam: NORMAL INSPECTION - Eye Exam Eye Exam: Normal appearance - ENT Exam ENT Exam: Mucous Membranes Moist - Respiratory Exam Respiratory Exam: Clear to Ausculation Bilateral - Cardiovascular Exam Cardiovascular Exam: REGULAR RHYTHM, +S1, +S2 - GI/Abdominal Exam GI & Abdominal Exam: Soft, Normal Bowel Sounds - Extremities Exam Extremities Exam: Normal Inspection - Neurological Exam Neurological Exam: Alert, Oriented x3 - Psychiatric Exam Psychiatric exam: Normal Affect, Normal Mood Assessment and Plan (1) Atrial fibrillation with slow ventricular response Status: Acute (2) Frequent falls Status: Acute (3) Chronic congestive heart failure Status: Acute (4) Hypertension Status: Acute - Assessment and Plan (Free Text) Plan: Lovenox Lasix Lisinopril 40 mg daily Aspirin Physical therapy Continue supportive care Awaiting placement DVT/GI prophylaxis
--- NOTE | 2017-08-01 19:31 | CP.PCM.PN ---
Subjective - Date & Time of Evaluation Date of Evaluation: 08/01/17 Time of Evaluation: 19:30 - Subjective Subjective: Patient seen and evaluated Not a candidate for Anicoagulation for repeted falls recommend ASA 81 daily Objective - Vital Signs/Intake and Output Vital Signs (last 24 hours): Temp Pulse Resp BP Pulse Ox 97.9 F 63 20 131/71 99 08/01/17 15:42 08/01/17 15:42 08/01/17 15:42 08/01/17 15:42 08/01/17 15:42 Intake and Output: 08/01/17 08/02/17 18:59 06:59 Intake Total 720 Output Total 600 Balance 120 - Medications Medications: Current Medications Aspirin (Aspirin Chewable) 81 mg PO DAILY [facility] Last Admin: 08/01/17 09:36 Dose: 81 mg Diphenhydramine HCl (Benadryl) 12.5 mg PO Q8H PRN PRN Reason: Itching / Pruritus Last Admin: 07/28/17 18:59 Dose: 12.5 mg Donepezil HCl (Aricept) 5 mg PO HS [facility] Last Admin: 07/31/17 22:07 Dose: 5 mg Enoxaparin Sodium (Lovenox) 65 mg SC Q12 [facility] Last Admin: 08/01/17 09:36 Dose: 65 mg Furosemide (Lasix) 20 mg PO DAILY [facility] Last Admin: 08/01/17 09:37 Dose: 20 mg Lisinopril (Zestril) 40 mg PO DAILY [facility] Last Admin: 08/01/17 09:37 Dose: 40 mg - Labs Labs: 07/30/17 11:14 07/31/17 13:50 PT 13.5 SECONDS (9.7-12.2) H 07/27/17 16:18 INR 1.2 07/27/17 16:18 APTT 34 SECONDS (21-34) 07/27/17 16:18
[2017-08-02] MEDS: Enoxaparin 80 mg Syringe SC SCH ×2 (09:12→21:17)
[2017-08-03] MEDS: Enoxaparin 80 mg Syringe SC SCH (09:46)
--- NOTE | 2017-08-03 13:36 | CP.PCM.PN ---
Subjective - Date & Time of Evaluation Date of Evaluation: 08/03/17 Time of Evaluation: 13:36 - Subjective Subjective: Patient seen and examined No events overnight Objective - Vital Signs/Intake and Output Vital Signs (last 24 hours): Temp Pulse Resp BP Pulse Ox 98.5 F 79 20 123/72 95 08/02/17 23:35 08/03/17 08:00 08/02/17 23:35 08/03/17 09:48 08/02/17 23:35 Intake and Output: 08/03/17 08/03/17 06:59 18:59 Output Total 100 Balance -100 - Medications Medications: Current Medications Aspirin (Aspirin Chewable) 81 mg PO DAILY [facility] Last Admin: 08/03/17 09:47 Dose: 81 mg Diphenhydramine HCl (Benadryl) 12.5 mg PO Q8H PRN PRN Reason: Itching / Pruritus Last Admin: 07/28/17 18:59 Dose: 12.5 mg Donepezil HCl (Aricept) 5 mg PO HS [facility] Last Admin: 08/02/17 21:18 Dose: 5 mg Furosemide (Lasix) 20 mg PO DAILY [facility] Last Admin: 08/03/17 09:48 Dose: 20 mg Lisinopril (Zestril) 40 mg PO DAILY [facility] Last Admin: 08/03/17 09:47 Dose: 40 mg - Labs Labs: 07/30/17 11:14 07/31/17 13:50 PT 13.5 SECONDS (9.7-12.2) H 07/27/17 16:18 INR 1.2 07/27/17 16:18 APTT 34 SECONDS (21-34) 07/27/17 16:18 - Head Exam Head Exam: NORMAL INSPECTION - Eye Exam Eye Exam: Normal appearance - ENT Exam ENT Exam: Mucous Membranes Moist - Respiratory Exam Respiratory Exam: Clear to Ausculation Bilateral - Cardiovascular Exam Cardiovascular Exam: REGULAR RHYTHM - GI/Abdominal Exam GI & Abdominal Exam: Soft, Normal Bowel Sounds - Extremities Exam Extremities Exam: Normal Inspection - Neurological Exam Neurological Exam: Alert Assessment and Plan (1) Atrial fibrillation with slow ventricular response Status: Acute (2) Frequent falls Status: Acute (3) Chronic congestive heart failure Status: Acute (4) Hypertension Status: Acute - Assessment and Plan (Free Text) Plan: Lovenox Lasix Lisinopril 40 mg daily Aspirin Physical therapy Continue supportive care Awaiting placement DVT/GI prophylaxis
--- NOTE | 2017-08-03 21:33 | CP.PCM.PN ---
Subjective - Date & Time of Evaluation Date of Evaluation: 07/30/17 Time of Evaluation: 09:15 - Subjective Subjective: Patient seen and evaluated Comfortable Deneis chest pain and dyspnea Objective - Vital Signs/Intake and Output Vital Signs (last 24 hours): Temp Pulse Resp BP Pulse Ox 98.2 F 72 20 106/72 95 08/03/17 16:43 08/03/17 16:43 08/03/17 16:43 08/03/17 16:43 08/03/17 16:43 - Medications Medications: Current Medications Aspirin (Aspirin Chewable) 81 mg PO DAILY [facility] Last Admin: 08/03/17 09:47 Dose: 81 mg Diphenhydramine HCl (Benadryl) 12.5 mg PO Q8H PRN PRN Reason: Itching / Pruritus Last Admin: 07/28/17 18:59 Dose: 12.5 mg Donepezil HCl (Aricept) 5 mg PO HS [facility] Last Admin: 08/02/17 21:18 Dose: 5 mg Furosemide (Lasix) 20 mg PO DAILY [facility] Last Admin: 08/03/17 09:48 Dose: 20 mg Lisinopril (Zestril) 40 mg PO DAILY [facility] Last Admin: 08/03/17 09:47 Dose: 40 mg - Labs Labs: 07/30/17 11:14 07/31/17 13:50 PT 13.5 SECONDS (9.7-12.2) H 07/27/17 16:18 INR 1.2 07/27/17 16:18 APTT 34 SECONDS (21-34) 07/27/17 16:18
--- NOTE | 2017-08-03 21:35 | CP.PCM.PN ---
Subjective - Date & Time of Evaluation Date of Evaluation: 08/02/17 Time of Evaluation: 07:45 - Subjective Subjective: Patient seen and evaluated No cardiac events noted A Fib with rate controll Not a candidate for AC due to falls Objective - Vital Signs/Intake and Output Vital Signs (last 24 hours): Temp Pulse Resp BP Pulse Ox 98.2 F 72 20 106/72 95 08/03/17 16:43 08/03/17 16:43 08/03/17 16:43 08/03/17 16:43 08/03/17 16:43 - Medications Medications: Current Medications Aspirin (Aspirin Chewable) 81 mg PO DAILY [facility] Last Admin: 08/03/17 09:47 Dose: 81 mg Diphenhydramine HCl (Benadryl) 12.5 mg PO Q8H PRN PRN Reason: Itching / Pruritus Last Admin: 07/28/17 18:59 Dose: 12.5 mg Donepezil HCl (Aricept) 5 mg PO HS [facility] Last Admin: 08/02/17 21:18 Dose: 5 mg Furosemide (Lasix) 20 mg PO DAILY [facility] Last Admin: 08/03/17 09:48 Dose: 20 mg Lisinopril (Zestril) 40 mg PO DAILY [facility] Last Admin: 08/03/17 09:47 Dose: 40 mg - Labs Labs: 07/30/17 11:14 07/31/17 13:50 PT 13.5 SECONDS (9.7-12.2) H 07/27/17 16:18 INR 1.2 07/27/17 16:18 APTT 34 SECONDS (21-34) 07/27/17 16:18
--- NOTE | 2017-08-03 21:36 | CP.PCM.PN ---
Subjective - Date & Time of Evaluation Date of Evaluation: 08/03/17 Time of Evaluation: 17:20 - Subjective Subjective: patient seen and evaluated Family at bedside Deneis chest pain and dyspnea Objective - Vital Signs/Intake and Output Vital Signs (last 24 hours): Temp Pulse Resp BP Pulse Ox 98.2 F 72 20 106/72 95 08/03/17 16:43 08/03/17 16:43 08/03/17 16:43 08/03/17 16:43 08/03/17 16:43 - Medications Medications: Current Medications Aspirin (Aspirin Chewable) 81 mg PO DAILY [facility] Last Admin: 08/03/17 09:47 Dose: 81 mg Diphenhydramine HCl (Benadryl) 12.5 mg PO Q8H PRN PRN Reason: Itching / Pruritus Last Admin: 07/28/17 18:59 Dose: 12.5 mg Donepezil HCl (Aricept) 5 mg PO HS [facility] Last Admin: 08/02/17 21:18 Dose: 5 mg Furosemide (Lasix) 20 mg PO DAILY [facility] Last Admin: 08/03/17 09:48 Dose: 20 mg Lisinopril (Zestril) 40 mg PO DAILY [facility] Last Admin: 08/03/17 09:47 Dose: 40 mg - Labs Labs: 07/30/17 11:14 07/31/17 13:50 PT 13.5 SECONDS (9.7-12.2) H 07/27/17 16:18 INR 1.2 07/27/17 16:18 APTT 34 SECONDS (21-34) 07/27/17 16:18
--- NOTE | 2017-08-04 19:14 | CP.PCM.PN ---
Subjective - Date & Time of Evaluation Date of Evaluation: 08/04/17 Time of Evaluation: 19:11 - Subjective Subjective: Patient seen and examined No events overnight Objective - Vital Signs/Intake and Output Vital Signs (last 24 hours): Temp Pulse Resp BP Pulse Ox 97.5 F L 64 20 134/77 96 08/04/17 16:00 08/04/17 16:00 08/04/17 16:00 08/04/17 16:00 08/04/17 16:00 - Medications Medications: Current Medications Aspirin (Aspirin Chewable) 81 mg PO DAILY [facility] Last Admin: 08/04/17 09:44 Dose: 81 mg Diphenhydramine HCl (Benadryl) 12.5 mg PO Q8H PRN PRN Reason: Itching / Pruritus Last Admin: 07/28/17 18:59 Dose: 12.5 mg Donepezil HCl (Aricept) 5 mg PO HS [facility] Last Admin: 08/03/17 21:38 Dose: 5 mg Furosemide (Lasix) 20 mg PO DAILY [facility] Last Admin: 08/04/17 09:44 Dose: 20 mg Lisinopril (Zestril) 40 mg PO DAILY [facility] Last Admin: 08/04/17 09:44 Dose: 40 mg - Labs Labs: 07/30/17 11:14 07/31/17 13:50 PT 13.5 SECONDS (9.7-12.2) H 07/27/17 16:18 INR 1.2 07/27/17 16:18 APTT 34 SECONDS (21-34) 07/27/17 16:18 - Head Exam Head Exam: NORMAL INSPECTION - Eye Exam Eye Exam: Normal appearance - ENT Exam ENT Exam: Mucous Membranes Moist - Respiratory Exam Respiratory Exam: Clear to Ausculation Bilateral, NORMAL BREATHING PATTERN - Cardiovascular Exam Cardiovascular Exam: REGULAR RHYTHM, +S1, +S2 - GI/Abdominal Exam GI & Abdominal Exam: Soft, Normal Bowel Sounds - Extremities Exam Extremities Exam: Normal Inspection - Neurological Exam Neurological Exam: Alert, Oriented x3 - Psychiatric Exam Psychiatric exam: Normal Affect, Normal Mood Assessment and Plan (1) Atrial fibrillation with slow ventricular response Status: Acute (2) Frequent falls Status: Acute (3) Chronic congestive heart failure Status: Acute (4) Hypertension Status: Acute - Assessment and Plan (Free Text) Plan: Continue aspirin Not a candidate for anticoagulation due to frequent falls Lasix 20 mg daily Lisinopril 40 mg daily Continue supportive care Patient is awaiting placement
--- NOTE | 2017-08-04 22:13 | CP.PCM.PN ---
Subjective - Date & Time of Evaluation Date of Evaluation: 08/04/17 Time of Evaluation: 08:40 - Subjective Subjective: Patient seen and evaluated Denies chest pain and dyspnea Not in distress Objective - Vital Signs/Intake and Output Vital Signs (last 24 hours): Temp Pulse Resp BP Pulse Ox 97.5 F L 64 20 134/77 96 08/04/17 16:00 08/04/17 16:00 08/04/17 16:00 08/04/17 16:00 08/04/17 16:00 - Medications Medications: Current Medications Aspirin (Aspirin Chewable) 81 mg PO DAILY [facility] Last Admin: 08/04/17 09:44 Dose: 81 mg Diphenhydramine HCl (Benadryl) 12.5 mg PO Q8H PRN PRN Reason: Itching / Pruritus Last Admin: 07/28/17 18:59 Dose: 12.5 mg Donepezil HCl (Aricept) 5 mg PO HS [facility] Last Admin: 08/04/17 21:26 Dose: 5 mg Furosemide (Lasix) 20 mg PO DAILY [facility] Last Admin: 08/04/17 09:44 Dose: 20 mg Heparin Sodium (Porcine) (Heparin) 5,000 units SC Q8 [facility] Last Admin: 08/04/17 21:26 Dose: 5,000 units Lisinopril (Zestril) 40 mg PO DAILY [facility] Last Admin: 08/04/17 09:44 Dose: 40 mg - Labs Labs: 07/30/17 11:14 07/31/17 13:50 PT 13.5 SECONDS (9.7-12.2) H 07/27/17 16:18 INR 1.2 07/27/17 16:18 APTT 34 SECONDS (21-34) 07/27/17 16:18
--- NOTE | 2017-08-05 15:55 | CP.PCM.PN ---
Subjective - Date & Time of Evaluation Date of Evaluation: 08/05/17 Time of Evaluation: 15:55 - Subjective Subjective: Patient seen and examined No events overnight Objective - Vital Signs/Intake and Output Vital Signs (last 24 hours): Temp Pulse Resp BP Pulse Ox 97.9 F 59 L 20 108/68 95 08/05/17 15:37 08/05/17 15:37 08/05/17 15:37 08/05/17 15:37 08/05/17 15:37 Intake and Output: 08/05/17 08/05/17 06:59 18:59 Intake Total 320 Balance 320 - Medications Medications: Current Medications Aspirin (Aspirin Chewable) 81 mg PO DAILY [facility] Last Admin: 08/05/17 09:45 Dose: 81 mg Diphenhydramine HCl (Benadryl) 12.5 mg PO Q8H PRN PRN Reason: Itching / Pruritus Last Admin: 07/28/17 18:59 Dose: 12.5 mg Donepezil HCl (Aricept) 5 mg PO HS [facility] Last Admin: 08/04/17 21:26 Dose: 5 mg Furosemide (Lasix) 20 mg PO DAILY [facility] Last Admin: 08/05/17 09:45 Dose: 20 mg Heparin Sodium (Porcine) (Heparin) 5,000 units SC Q8 [facility] Last Admin: 08/05/17 14:03 Dose: 5,000 units Lisinopril (Zestril) 40 mg PO DAILY [facility] Last Admin: 08/05/17 09:45 Dose: 40 mg - Labs Labs: 07/30/17 11:14 07/31/17 13:50 PT 13.5 SECONDS (9.7-12.2) H 07/27/17 16:18 INR 1.2 07/27/17 16:18 APTT 34 SECONDS (21-34) 07/27/17 16:18 - Head Exam Head Exam: NORMAL INSPECTION - Eye Exam Eye Exam: Normal appearance - ENT Exam ENT Exam: Mucous Membranes Moist - Respiratory Exam Respiratory Exam: Clear to Ausculation Bilateral - Cardiovascular Exam Cardiovascular Exam: Irregular Rhythm - GI/Abdominal Exam GI & Abdominal Exam: Soft, Normal Bowel Sounds - Extremities Exam Extremities Exam: Normal Inspection Assessment and Plan (1) Atrial fibrillation with slow ventricular response Status: Acute (2) Frequent falls Status: Acute (3) Chronic congestive heart failure Status: Acute (4) Hypertension Status: Acute - Assessment and Plan (Free Text) Plan: Continue aspirin Not a candidate for anticoagulation due to frequent falls Lasix 20 mg daily Lisinopril 40 mg daily Continue supportive care Patient is awaiting placement
--- NOTE | 2017-08-05 21:02 | CP.PCM.PN ---
Subjective - Date & Time of Evaluation Date of Evaluation: 08/05/17 Time of Evaluation: 09:10 - Subjective Subjective: Patient seen and evaluated No cardiac events Objective - Vital Signs/Intake and Output Vital Signs (last 24 hours): Temp Pulse Resp BP Pulse Ox 97.9 F 59 L 20 108/68 95 08/05/17 15:37 08/05/17 15:37 08/05/17 15:37 08/05/17 15:37 08/05/17 15:37 - Medications Medications: Current Medications Aspirin (Aspirin Chewable) 81 mg PO DAILY [facility] Last Admin: 08/05/17 09:45 Dose: 81 mg Diphenhydramine HCl (Benadryl) 12.5 mg PO Q8H PRN PRN Reason: Itching / Pruritus Last Admin: 07/28/17 18:59 Dose: 12.5 mg Donepezil HCl (Aricept) 5 mg PO HS [facility] Last Admin: 08/04/17 21:26 Dose: 5 mg Furosemide (Lasix) 20 mg PO DAILY [facility] Last Admin: 08/05/17 09:45 Dose: 20 mg Heparin Sodium (Porcine) (Heparin) 5,000 units SC Q8 [facility] Last Admin: 08/05/17 14:03 Dose: 5,000 units Lisinopril (Zestril) 40 mg PO DAILY [facility] Last Admin: 08/05/17 09:45 Dose: 40 mg - Labs Labs: 07/30/17 11:14 07/31/17 13:50 PT 13.5 SECONDS (9.7-12.2) H 07/27/17 16:18 INR 1.2 07/27/17 16:18 APTT 34 SECONDS (21-34) 07/27/17 16:18
--- NOTE | 2017-08-06 15:14 | CP.PCM.PN ---
Subjective - Date & Time of Evaluation Date of Evaluation: 08/06/17 Time of Evaluation: 15:14 - Subjective Subjective: Patient seen and examined No events overnight Objective - Vital Signs/Intake and Output Vital Signs (last 24 hours): Temp Pulse Resp BP Pulse Ox 97.9 F 80 20 111/72 96 08/06/17 08:10 08/06/17 08:10 08/06/17 08:10 08/06/17 11:10 08/06/17 08:10 Intake and Output: 08/06/17 08/06/17 06:59 18:59 Intake Total 320 Output Total 900 Balance -580 - Medications Medications: Current Medications Aspirin (Aspirin Chewable) 81 mg PO DAILY [facility] Last Admin: 08/06/17 11:14 Dose: 81 mg Diphenhydramine HCl (Benadryl) 12.5 mg PO Q8H PRN PRN Reason: Itching / Pruritus Last Admin: 07/28/17 18:59 Dose: 12.5 mg Donepezil HCl (Aricept) 5 mg PO HS [facility] Last Admin: 08/05/17 21:12 Dose: 5 mg Furosemide (Lasix) 20 mg PO DAILY [facility] Last Admin: 08/06/17 11:10 Dose: 20 mg Heparin Sodium (Porcine) (Heparin) 5,000 units SC Q8 [facility] Last Admin: 08/06/17 14:09 Dose: 5,000 units Lisinopril (Zestril) 40 mg PO DAILY [facility] Last Admin: 08/06/17 11:10 Dose: 40 mg - Labs Labs: 07/30/17 11:14 07/31/17 13:50 PT 13.5 SECONDS (9.7-12.2) H 07/27/17 16:18 INR 1.2 07/27/17 16:18 APTT 34 SECONDS (21-34) 07/27/17 16:18 - Head Exam Head Exam: NORMAL INSPECTION - Eye Exam Eye Exam: Normal appearance - ENT Exam ENT Exam: Mucous Membranes Moist - Respiratory Exam Respiratory Exam: Clear to Ausculation Bilateral - Cardiovascular Exam Cardiovascular Exam: Irregular Rhythm - GI/Abdominal Exam GI & Abdominal Exam: Soft, Normal Bowel Sounds - Extremities Exam Extremities Exam: Normal Inspection Assessment and Plan (1) Atrial fibrillation with slow ventricular response Status: Acute (2) Frequent falls Status: Acute (3) Chronic congestive heart failure Status: Acute (4) Hypertension Status: Acute - Assessment and Plan (Free Text) Plan: Awaiting placement Continue aspirin Not a candidate for anticoagulation due to frequent falls Lasix 20 mg daily Lisinopril 40 mg daily Continue supportive care Patient is awaiting placement
--- NOTE | 2017-08-06 22:57 | CP.PCM.PN ---
Subjective - Date & Time of Evaluation Date of Evaluation: 08/06/17 Time of Evaluation: 08:20 - Subjective Subjective: Patient seen and evaluated No cardiac events noted Objective - Vital Signs/Intake and Output Vital Signs (last 24 hours): Temp Pulse Resp BP Pulse Ox 98.1 F 70 18 112/75 98 08/06/17 20:13 08/06/17 20:13 08/06/17 20:13 08/06/17 20:13 08/06/17 20:13 Intake and Output: 08/06/17 08/07/17 18:59 06:59 Output Total 200 Balance -200 - Medications Medications: Current Medications Aspirin (Aspirin Chewable) 81 mg PO DAILY [facility] Last Admin: 08/06/17 11:14 Dose: 81 mg Diphenhydramine HCl (Benadryl) 12.5 mg PO Q8H PRN PRN Reason: Itching / Pruritus Last Admin: 07/28/17 18:59 Dose: 12.5 mg Donepezil HCl (Aricept) 5 mg PO HS [facility] Last Admin: 08/06/17 22:03 Dose: 5 mg Furosemide (Lasix) 20 mg PO DAILY [facility] Last Admin: 08/06/17 11:10 Dose: 20 mg Heparin Sodium (Porcine) (Heparin) 5,000 units SC Q8 [facility] Last Admin: 08/06/17 22:03 Dose: 5,000 units Lisinopril (Zestril) 40 mg PO DAILY [facility] Last Admin: 08/06/17 11:10 Dose: 40 mg - Labs Labs: 07/30/17 11:14 07/31/17 13:50 PT 13.5 SECONDS (9.7-12.2) H 07/27/17 16:18 INR 1.2 07/27/17 16:18 APTT 34 SECONDS (21-34) 07/27/17 16:18
[2017-08-07 02:27] VITALS: RESP 20
--- NOTE | 2017-08-07 18:47 | CP.PCM.PN ---
Subjective - Date & Time of Evaluation Date of Evaluation: 08/07/17 Time of Evaluation: 18:46 - Subjective Subjective: Patient seen and examined No events overnight Awaiting placement Objective - Vital Signs/Intake and Output Vital Signs (last 24 hours): Temp Pulse Resp BP Pulse Ox 98.2 F 70 20 112/69 96 08/07/17 15:59 08/07/17 15:59 08/07/17 15:59 08/07/17 15:59 08/07/17 15:59 Intake and Output: 08/07/17 08/07/17 06:59 18:59 Intake Total 100 Output Total 200 Balance -100 - Medications Medications: Current Medications Aspirin (Aspirin Chewable) 81 mg PO DAILY [facility] Last Admin: 08/07/17 09:41 Dose: 81 mg Diphenhydramine HCl (Benadryl) 12.5 mg PO Q8H PRN PRN Reason: Itching / Pruritus Last Admin: 07/28/17 18:59 Dose: 12.5 mg Donepezil HCl (Aricept) 5 mg PO HS [facility] Last Admin: 08/06/17 22:03 Dose: 5 mg Furosemide (Lasix) 20 mg PO DAILY [facility] Last Admin: 08/07/17 09:41 Dose: 20 mg Heparin Sodium (Porcine) (Heparin) 5,000 units SC Q8 [facility] Last Admin: 08/07/17 14:07 Dose: 5,000 units Lisinopril (Zestril) 40 mg PO DAILY [facility] Last Admin: 08/07/17 09:41 Dose: 40 mg - Labs Labs: 07/30/17 11:14 07/31/17 13:50 PT 13.5 SECONDS (9.7-12.2) H 07/27/17 16:18 INR 1.2 07/27/17 16:18 APTT 34 SECONDS (21-34) 07/27/17 16:18 - Head Exam Head Exam: NORMAL INSPECTION - Eye Exam Eye Exam: Normal appearance - ENT Exam ENT Exam: Mucous Membranes Moist - Respiratory Exam Respiratory Exam: Clear to Ausculation Bilateral - Cardiovascular Exam Cardiovascular Exam: REGULAR RHYTHM, +S1, +S2 - GI/Abdominal Exam GI & Abdominal Exam: Soft, Normal Bowel Sounds - Neurological Exam Neurological Exam: Alert Assessment and Plan (1) Atrial fibrillation with slow ventricular response Status: Acute (2) Frequent falls Status: Acute (3) Chronic congestive heart failure Status: Acute (4) Hypertension Status: Acute - Assessment and Plan (Free Text) Plan: Awaiting placement Continue aspirin Not a candidate for anticoagulation due to frequent falls Lasix 20 mg daily Lisinopril 40 mg daily Continue supportive care DVT/GI prophylaxis
--- NOTE | 2017-08-07 20:34 | CP.PCM.PN ---
Subjective - Date & Time of Evaluation Date of Evaluation: 08/07/17 Time of Evaluation: 14:00 - Subjective Subjective: Patient seen and evaluated Comfortable No cardiac events Objective - Vital Signs/Intake and Output Vital Signs (last 24 hours): Temp Pulse Resp BP Pulse Ox 98.2 F 70 20 112/69 96 08/07/17 15:59 08/07/17 15:59 08/07/17 15:59 08/07/17 15:59 08/07/17 15:59 Intake and Output: 08/07/17 08/08/17 18:59 06:59 Intake Total 20 Balance 20 - Medications Medications: Current Medications Aspirin (Aspirin Chewable) 81 mg PO DAILY [facility] Last Admin: 08/07/17 09:41 Dose: 81 mg Diphenhydramine HCl (Benadryl) 12.5 mg PO Q8H PRN PRN Reason: Itching / Pruritus Last Admin: 07/28/17 18:59 Dose: 12.5 mg Donepezil HCl (Aricept) 5 mg PO HS [facility] Last Admin: 08/06/17 22:03 Dose: 5 mg Furosemide (Lasix) 20 mg PO DAILY [facility] Last Admin: 08/07/17 09:41 Dose: 20 mg Heparin Sodium (Porcine) (Heparin) 5,000 units SC Q8 [facility] Last Admin: 08/07/17 14:07 Dose: 5,000 units Lisinopril (Zestril) 40 mg PO DAILY [facility] Last Admin: 08/07/17 09:41 Dose: 40 mg - Labs Labs: 07/30/17 11:14 07/31/17 13:50 PT 13.5 SECONDS (9.7-12.2) H 07/27/17 16:18 INR 1.2 07/27/17 16:18 APTT 34 SECONDS (21-34) 07/27/17 16:18
[2017-08-08 11:34] LABS: BASO % 0.6 % (0.0-2.0); EOS # 0.1 K/uL (0.0-0.7); EOS % 3.3 % (0.0-4.0); HEMATOCRIT 44.3 % (35.0-51.0); LYMPH # 0.9 K/uL (1.0-4.3); LYMPH % 21.2 % (20.0-40.0); MEAN CELL VOLUME 94.2 fL (80.0-94.0); MEAN CORPUSCULAR HEMOGLOBIN 32.6 pg (27.0-31.0); MEAN CORPUSCULAR HGB CONC 34.6 g/dL (33.0-37.0); MEAN PLATELET VOLUME 9.1 fL (7.2-11.7); MONO # 0.3 K/uL (0.0-0.8); MONO % 7.7 % (0.0-10.0); RED CELL DISTRIBUTION WIDTH 14.8 % (11.5-14.5); WHITE BLOOD COUNT 4.3 K/uL (4.8-10.8)
[2017-08-08 11:54] LABS: BLOOD UREA NITROGEN 14 mg/dL (9-20); CALCIUM 8.6 mg/dl (8.6-10.4); CARBON DIOXIDE 32 mmol/L (22-30); CHLORIDE 99 mmol/L (98-107); GFR AFRICAN-AMERICAN > 60; GLUCOSE,RANDOM 118 mg/dL (75-110); POTASSIUM 3.4 mmol/L (3.6-5.2); SODIUM 136 mmol/L (132-148)
[2017-08-08] MEDS ORDERED: Potassium Chloride 20 mEq ER Tab PO ONE (12:15)
--- NOTE | 2017-08-08 12:15 | PCM.HF ---
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 Angiotensin II Receptor Mira Prescribed: No Contraindication/Reason for not providing: EF>45 AnticoagulationTherapy for Atrial Fibrillation/Atrialflutter: No Contraindication/Reason for not providing: NOT A CANDIDATE SECONDARY TO FREQUENT FALLS Aldosterone Antagonist Prescribed: No Contraindication/Reason for not providing: EF>45 Hydralazine Nitrate Prescribed: No Contraindication/Reason for not providing: EF>45 Implantable Cardioverter Defibrillator Therapy: No Contraindication/Reason for not providing: EF>45 Cardiac Resynchronization Therapy Prescribed: No Contraindication/Reason for not providing: EF>45 - Follow up Will be discharged to: [facility] ([facility]) Follow Up Date (must be within 7 days from discharge): 08/12/17 Follow Up Time: 09:00
--- NOTE | 2017-08-08 12:18 | CP.PCM.PN ---
Subjective - Date & Time of Evaluation Date of Evaluation: 08/08/17 Time of Evaluation: 11:20 - Subjective Subjective: Patient seen today , awake, alert, comfortable , denies any complaints No overnigh t events reported by RN Objective - Vital Signs/Intake and Output Vital Signs (last 24 hours): Temp Pulse Resp BP Pulse Ox 98.0 F 85 20 124/79 96 08/08/17 08:38 08/08/17 08:38 08/08/17 08:38 08/08/17 10:25 08/08/17 08:38 Intake and Output: 08/08/17 08/08/17 06:59 18:59 Intake Total 20 Balance 20 - Medications Medications: Current Medications Aspirin (Aspirin Chewable) 81 mg PO DAILY [facility] Last Admin: 08/08/17 10:25 Dose: 81 mg Diphenhydramine HCl (Benadryl) 12.5 mg PO Q8H PRN PRN Reason: Itching / Pruritus Last Admin: 07/28/17 18:59 Dose: 12.5 mg Donepezil HCl (Aricept) 5 mg PO HS [facility] Last Admin: 08/07/17 21:34 Dose: 5 mg Furosemide (Lasix) 20 mg PO DAILY [facility] Last Admin: 08/08/17 10:25 Dose: 20 mg Heparin Sodium (Porcine) (Heparin) 5,000 units SC Q8 [facility] Last Admin: 08/08/17 06:19 Dose: 5,000 units Lisinopril (Zestril) 40 mg PO DAILY [facility] Last Admin: 08/08/17 10:25 Dose: 40 mg Potassium Chloride (K-Dur 20 Meq Er Tab) 40 meq PO ONCE ONE Stop: 08/08/17 12:16 - Labs Labs: 08/08/17 11:28 08/08/17 11:28 PT 13.5 SECONDS (9.7-12.2) H 07/27/17 16:18 INR 1.2 07/27/17 16:18 APTT 34 SECONDS (21-34) 07/27/17 16:18 Assessment and Plan - Assessment and Plan (Free Text) Assessment: A/P 86 yr old male with pmhx of Atrial Fibrillation, CHF, Dementia, HTN admitted with syncope and frequent falls Dr. Ga consulted for a fib , not a candidate for terminal gauger anticoagulation, secondary to frequent falls continue with aspirin Patient accepted for [facility] for rehab and family in agreement today labs WNL except K and replaced d/w Dr. Mcknight, pt stable for discharge to [facility] today
--- NOTE | 2017-08-08 15:19 | CP.PCM.PN ---
Subjective - Date & Time of Evaluation Date of Evaluation: 08/08/17 Time of Evaluation: 15:19 Objective - Vital Signs/Intake and Output Vital Signs (last 24 hours): Temp Pulse Resp BP Pulse Ox 98.0 F 85 20 124/79 96 08/08/17 08:38 08/08/17 08:38 08/08/17 08:38 08/08/17 10:25 08/08/17 08:38 Intake and Output: 08/08/17 08/08/17 06:59 18:59 Intake Total 20 Balance 20 - Medications Medications: Current Medications Aspirin (Aspirin Chewable) 81 mg PO DAILY [facility] Last Admin: 08/08/17 10:25 Dose: 81 mg Diphenhydramine HCl (Benadryl) 12.5 mg PO Q8H PRN PRN Reason: Itching / Pruritus Last Admin: 07/28/17 18:59 Dose: 12.5 mg Donepezil HCl (Aricept) 5 mg PO HS [facility] Last Admin: 08/07/17 21:34 Dose: 5 mg Furosemide (Lasix) 20 mg PO DAILY [facility] Last Admin: 08/08/17 10:25 Dose: 20 mg Heparin Sodium (Porcine) (Heparin) 5,000 units SC Q8 [facility] Last Admin: 08/08/17 14:31 Dose: 5,000 units Lisinopril (Zestril) 40 mg PO DAILY [facility] Last Admin: 08/08/17 10:25 Dose: 40 mg - Labs Labs: 08/08/17 11:28 08/08/17 11:28 PT 13.5 SECONDS (9.7-12.2) H 07/27/17 16:18 INR 1.2 07/27/17 16:18 APTT 34 SECONDS (21-34) 07/27/17 16:18 Assessment and Plan (1) Atrial fibrillation with slow ventricular response Status: Acute (2) Frequent falls Status: Acute (3) Chronic congestive heart failure Status: Acute (4) Hypertension Status: Acute
[2017-08-08 15:51] VITALS: BP 113/76; PULSE 62; TEMP 97.8; O2SAT 97
--- NOTE | 2017-08-09 16:46 | CP.PCM.PN ---
Subjective - Date & Time of Evaluation Date of Evaluation: 08/08/17 Time of Evaluation: 08:10 - Subjective Subjective: Patient seen and evaluated Denies chest pain and dyspnea Objective - Vital Signs/Intake and Output Vital Signs (last 24 hours): Temp Pulse Resp BP Pulse Ox 97.8 F 62 20 113/76 97 08/08/17 15:10 08/08/17 15:10 08/08/17 15:10 08/08/17 15:10 08/08/17 15:10 - Labs Labs: 08/08/17 11:28 08/08/17 11:28 PT 13.5 SECONDS (9.7-12.2) H 07/27/17 16:18 INR 1.2 07/27/17 16:18 APTT 34 SECONDS (21-34) 07/27/17 16:18
== END 2017-08-08 16:46 | DRG 310 ==
LOC: C.ER 13:51 → C.9E 16:43 → C.6T 19:41
PROVIDERS: ADMIT Internal Medicine Critical Care Medicine; ATTEND Internal Medicine Critical Care Medicine
DX: I48.91 Unspecified atrial fibrillation (principal); I11.0 Hypertensive heart disease with heart failure; I50.9 Heart failure, unspecified; R29.6 Repeated falls